=== PATIENT | female | born 1985 | race African-American/Black ===

== ENCOUNTER 2017-07-02 16:05 | Inpatient (IN) | payer OTHER ==
[2017-07-02] MEDS: MORPHINE 4 MG/ML 1ML VIAL (J2270) IV ×3 (16:45→23:26)
[2017-07-02 16:47] LABS: BASO % 0.1 % (0.0-1.0); EOS # 0.1 10^3/uL (0.0-0.50); EOS % 0.4 % (0.0-3.0); HEMATOCRIT 42.9 % (36.0-47.0); HEMOGLOBIN 14.3 g/dl (12.0-16.0); IMMATURE GRANULOCYTE % 0.3 % (0-3.0); LYMPH # 1.5 10^3/uL (1.5-4.5); LYMPH % 12.1 % (24.0-44.0); MEAN CORPUSCULAR HEMOGLOBIN 30.7 pg (27.0-33.0); MEAN CORPUSCULAR HGB CONC 33.3 g/dl (32.0-36.5); MEAN CORPUSCULAR VOLUME 92.1 fl (80.0-96.0); MONO # 0.8 10^3/uL (0.0-0.8); MONO % 6.3 % (0.0-5.0); NEUTROPHILS # 10.1 10^3/uL (1.8-7.7); NEUTROPHILS % 80.8 % (36.0-66.0); PLATELET COUNT, AUTOMATED 234 10^3/uL (150-450); RED BLOOD COUNT 4.66 10^6/uL (4.00-5.40); RED CELL DISTRIBUTION WIDTH 11.5 % (11.5-14.5); WHITE BLOOD COUNT 12.5 10^3/uL (4.0-10.0)
[2017-07-02] MEDS: ONDANSETRON 4MG/2ML VIAL (J2405) IV (16:50)
[2017-07-02] MEDS: NS 1,000 ML IV ×2 (16:54→20:17)
[2017-07-02 17:02] LABS: CONTROL LINE HCG INT CTR LINE PRESENT; HCG, SERUM QUALITATIVE NEGATIVE (NEGATIVE)
[2017-07-02] MEDS: GASTROGRAFIN SOLUTION 30ML PO ×2 (17:03→17:32)
[2017-07-02 17:10] LABS: ALBUMIN 4.6 GM/DL (3.2-5.2); ALBUMIN/GLOBULIN RATIO 1.05 (1.00-1.93); ALKALINE PHOSPHATASE 89 U/L (45-117); ALT/SGPT 31 U/L (12-78); AMYLASE 366 U/L (25-115); ANION GAP 7 MEQ/L (8-16); AST/SGOT 46 U/L (7-37); BILIRUBIN,DIRECT 0.3 MG/DL (0.0-0.2); BILIRUBIN,TOTAL 1.3 MG/DL (0.2-1.0); BLOOD UREA NITROGEN 10 MG/DL (7-18); CALCIUM LEVEL 8.8 MG/DL (8.5-10.1); CARBON DIOXIDE LEVEL 26 MEQ/L (21-32); CHLORIDE LEVEL 104 MEQ/L (98-107); CREATININE FOR GFR 0.62 MG/DL (0.55-1.30); GLOMERULAR FILTRATION RATE > 60.0 (>60); GLUCOSE, FASTING 94 MG/DL (70-100); LIPASE 3899 U/L (73-393); POTASSIUM SERUM 3.7 MEQ/L (3.5-5.1); SODIUM LEVEL 137 MEQ/L (136-145)
[2017-07-02] MEDS ORDERED: ISOVUE-370 76% 100ML VIAL (Q9967) As Ordered (18:05)
[2017-07-02] MEDS: LABETALOL HCL 100 MG/20 ML VIAL IV (18:18)
[2017-07-02] MEDS: HYDROmorphone HCL 1 MG/ML SYRINGE (J1170) IV ×2 (18:49→22:13)
[2017-07-02] MEDS ORDERED: PERCOCET 5MG/325MG TAB PO (19:30)
[2017-07-02] MEDS: PERCOCET 5MG/325MG TAB PO (20:04)
[2017-07-02] MEDS: hydrALAZINE INJ 20 MG/ML VIAL IV (20:06)
[2017-07-02 20:09] LABS: RHEUMATOID FACTOR QUANT < 10.0 IU/ML (<15.0)
[2017-07-02 20:14] LABS: ERYTHROCYTE SEDIMENTATION RATE 7 mm/hr (0-20)
[2017-07-02 20:16] LABS: ETHYL ALCOHOL (ETHANOL) < 0.003 % (0.000-0.010)
[2017-07-02 20:30] LABS: AMPHETAMINES LEVEL URINE NEGATIVE (NEGATIVE); BARBITURATES URINE NEGATIVE (NEGATIVE); BENZODIAZEPINES URINE NEGATIVE (NEGATIVE); CANNABINOIDS URINE NEGATIVE (NEGATIVE); COCAINE METABOLITE URINE NEGATIVE (NEGATIVE); METHADONE URINE NEGATIVE (NEGATIVE); OPIATES URINE POSITIVE (NEGATIVE); PHENCYCLIDINE URINE NEGATIVE (NEGATIVE)
[2017-07-02] MEDS: PANTOPRAZOLE 40MG INJ (PROTONIX) (C9113) IV (21:30)
[2017-07-03] MEDS: PROMETHAZINE INJ 25 MG/ML VIAL (J2550) IV (01:36)
[2017-07-03] MEDS: NS 1,000 ML IV ×4 (02:10→22:10)
[2017-07-03] MEDS: hydrALAZINE INJ 20 MG/ML VIAL IV ×5 (03:51→20:00)
[2017-07-03] MEDS: MORPHINE 4 MG/ML 1ML VIAL (J2270) IV ×5 (03:51→21:34)
[2017-07-03] MEDS: HYDROmorphone HCL 1 MG/ML SYRINGE (J1170) IV (07:36)
[2017-07-03] MEDS: ONDANSETRON 4MG/2ML VIAL (J2405) IV ×2 (07:37)
[2017-07-03] MEDS ORDERED: NS 1,000 ML IV (07:46)
[2017-07-03] MEDS ORDERED: diphenhydrAMINE INJ 50MG/ML VIAL (J1200) IV (08:00)
[2017-07-03] MEDS ORDERED: EPIDURAL/PCA KEYS XX (08:00)
[2017-07-03] MEDS ORDERED: NALBUPHINE HCL 10 MG/ML AMP (J2300) IV (08:00)
[2017-07-03] MEDS ORDERED: MORPHINE 1MG/ML IN 0.9% NACL 100ML IV BAG IV (08:00)
[2017-07-03] MEDS ORDERED: NALOXONE INJ 0.4 MG/1 ML VIAL (J2310) IV (08:00)
[2017-07-03 08:13] LABS: HEMATOCRIT 42.2 % (36.0-47.0); HEMOGLOBIN 14.3 g/dl (12.0-16.0); MEAN CORPUSCULAR HEMOGLOBIN 30.5 pg (27.0-33.0); MEAN CORPUSCULAR HGB CONC 33.9 g/dl (32.0-36.5); PLATELET COUNT, AUTOMATED 210 10^3/uL (150-450); RED BLOOD COUNT 4.69 10^6/uL (4.00-5.40); RED CELL DISTRIBUTION WIDTH 11.5 % (11.5-14.5); WHITE BLOOD COUNT 18.2 10^3/uL (4.0-10.0)
[2017-07-03] MEDS: cloNIDine 0.2 MG TAB PO (08:25)
[2017-07-03] MEDS: ENOXAPARIN 40 MG/0.4 ML SYRINGE (J1650) SC (08:29)
[2017-07-03] MEDS: PANTOPRAZOLE 40MG INJ (PROTONIX) (C9113) IV ×2 (08:30→21:20)
[2017-07-03] MEDS: ATENOLOL 25 MG TAB PO (08:30)
[2017-07-03 08:36] LABS: ALBUMIN 4.2 GM/DL (3.2-5.2); ALBUMIN/GLOBULIN RATIO 1.14 (1.00-1.93); ALKALINE PHOSPHATASE 83 U/L (45-117); ALT/SGPT 27 U/L (12-78); ANION GAP 11 MEQ/L (8-16); AST/SGOT 38 U/L (7-37); BILIRUBIN,TOTAL 0.9 MG/DL (0.2-1.0); BLOOD UREA NITROGEN 5 MG/DL (7-18); CALCIUM LEVEL 8.2 MG/DL (8.5-10.1); CARBON DIOXIDE LEVEL 22 MEQ/L (21-32); CHLORIDE LEVEL 102 MEQ/L (98-107); CHOLESTEROL LEVEL 210 MG/DL (<200); CREATININE FOR GFR 0.45 MG/DL (0.55-1.30); GLOMERULAR FILTRATION RATE > 60.0 (>60); GLUCOSE, FASTING 113 MG/DL (70-100); HDL CHOLESTEROL 100 MG/DL (>40); LDL CHOLESTEROL 98.6 MG/DL (<100); NON-HDL-C 110 MG/DL; POTASSIUM SERUM 3.8 MEQ/L (3.5-5.1); SODIUM LEVEL 135 MEQ/L (136-145); TOTAL PROTEIN 7.9 GM/DL (6.4-8.2); TRIGLYCERIDES LEVEL 57 MG/DL (<150)
[2017-07-03 08:47] LABS: ERYTHROCYTE SEDIMENTATION RATE 9 mm/hr (0-20)
[2017-07-03 09:22] LABS: AMYLASE 267 U/L (25-115)
[2017-07-03 09:22] LABS: LIPASE 1808 U/L (73-393)
[2017-07-03] MEDS ORDERED: PERCOCET 5MG/325MG TAB PO (14:30)
[2017-07-03] MEDS: NORCO, ANEXSIA 5/325MG TABLET (HYDROcodone/ACETAMINOPHEN) PO (18:07)
[2017-07-04] MEDS: hydrALAZINE INJ 20 MG/ML VIAL IV ×7 (04:00→23:52)
[2017-07-04] MEDS: NS 1,000 ML IV ×3 (04:40→18:21)
[2017-07-04] MEDS: NORCO, ANEXSIA 5/325MG TABLET (HYDROcodone/ACETAMINOPHEN) PO ×4 (04:40→20:49)
[2017-07-04 05:35] LABS: MEAN CORPUSCULAR HEMOGLOBIN 30.7 pg (27.0-33.0); MEAN CORPUSCULAR VOLUME 93.2 fl (80.0-96.0); PLATELET COUNT, AUTOMATED 174 10^3/uL (150-450); RED BLOOD COUNT 3.97 10^6/uL (4.00-5.40); RED CELL DISTRIBUTION WIDTH 11.7 % (11.5-14.5); WHITE BLOOD COUNT 9.5 10^3/uL (4.0-10.0)
[2017-07-04 05:38] LABS: HEMOGLOBIN 12.2 g/dl (12.0-16.0)
[2017-07-04 05:58] LABS: ALBUMIN 3.2 GM/DL (3.2-5.2); ALBUMIN/GLOBULIN RATIO 0.94 (1.00-1.93); ALKALINE PHOSPHATASE 61 U/L (45-117); ALT/SGPT 19 U/L (12-78); ANION GAP 6 MEQ/L (8-16); AST/SGOT 18 U/L (7-37); BILIRUBIN,TOTAL 0.9 MG/DL (0.2-1.0); BLOOD UREA NITROGEN 4 MG/DL (7-18); CALCIUM LEVEL 7.8 MG/DL (8.5-10.1); CARBON DIOXIDE LEVEL 23 MEQ/L (21-32); CHLORIDE LEVEL 111 MEQ/L (98-107); CREATININE FOR GFR 0.46 MG/DL (0.55-1.30); GLOMERULAR FILTRATION RATE > 60.0 (>60); GLUCOSE, FASTING 88 MG/DL (70-100); POTASSIUM SERUM 3.5 MEQ/L (3.5-5.1); SODIUM LEVEL 140 MEQ/L (136-145); TOTAL PROTEIN 6.6 GM/DL (6.4-8.2)
[2017-07-04 06:02] LABS: ERYTHROCYTE SEDIMENTATION RATE 25 mm/hr (0-20)
[2017-07-04] MEDS: PANTOPRAZOLE 40MG INJ (PROTONIX) (C9113) IV ×2 (09:21→20:47)
[2017-07-04] MEDS: ATENOLOL 25 MG TAB PO (09:22)
[2017-07-04] MEDS: ENOXAPARIN 40 MG/0.4 ML SYRINGE (J1650) SC (09:23)
[2017-07-04] MEDS: ACETAMINOPHEN 500 MG TAB PO (14:40)
[2017-07-05] MEDS: NS 1,000 ML IV (00:38)
[2017-07-05] MEDS: NORCO, ANEXSIA 5/325MG TABLET (HYDROcodone/ACETAMINOPHEN) PO (04:32)
[2017-07-05] MEDS: hydrALAZINE INJ 20 MG/ML VIAL IV ×2 (04:38→08:00)
[2017-07-05 05:36] LABS: HEMATOCRIT 34.9 % (36.0-47.0); HEMOGLOBIN 11.6 g/dl (12.0-16.0); MEAN CORPUSCULAR HEMOGLOBIN 30.2 pg (27.0-33.0); MEAN CORPUSCULAR HGB CONC 33.2 g/dl (32.0-36.5); MEAN CORPUSCULAR VOLUME 90.9 fl (80.0-96.0); PLATELET COUNT, AUTOMATED 180 10^3/uL (150-450); RED BLOOD COUNT 3.84 10^6/uL (4.00-5.40); RED CELL DISTRIBUTION WIDTH 11.6 % (11.5-14.5); WHITE BLOOD COUNT 7.5 10^3/uL (4.0-10.0)
[2017-07-05 05:57] LABS: ALBUMIN 3.2 GM/DL (3.2-5.2); ALBUMIN/GLOBULIN RATIO 0.91 (1.00-1.93); ALKALINE PHOSPHATASE 58 U/L (45-117); ALT/SGPT 16 U/L (12-78); ANION GAP 5 MEQ/L (8-16); AST/SGOT 16 U/L (7-37); BILIRUBIN,TOTAL 0.6 MG/DL (0.2-1.0); BLOOD UREA NITROGEN 4 MG/DL (7-18); CALCIUM LEVEL 8.2 MG/DL (8.5-10.1); CARBON DIOXIDE LEVEL 26 MEQ/L (21-32); CHLORIDE LEVEL 109 MEQ/L (98-107); GLOMERULAR FILTRATION RATE > 60.0 (>60); GLUCOSE, FASTING 92 MG/DL (70-100); POTASSIUM SERUM 3.4 MEQ/L (3.5-5.1); SODIUM LEVEL 140 MEQ/L (136-145); TOTAL PROTEIN 6.7 GM/DL (6.4-8.2)
[2017-07-05 06:14] LABS: ERYTHROCYTE SEDIMENTATION RATE 30 mm/hr (0-20)
[2017-07-05 06:46] LABS: LIPASE 544 U/L (73-393)
[2017-07-05] MEDS: ENOXAPARIN 40 MG/0.4 ML SYRINGE (J1650) SC (08:20)
[2017-07-05] MEDS: PANTOPRAZOLE 40MG INJ (PROTONIX) (C9113) IV (08:20)
[2017-07-05] MEDS: ATENOLOL 25 MG TAB PO (08:25)
[2017-07-06 14:14] LABS: ANTINUCLEAR ANTIBODIES DIRECT Negative (Negative)
[2017-07-06 14:14] LABS: ANTI-SMOOTH MUSCLE ANTIBODY 9 Units (0-19)
== END 2017-07-05 11:15 | disposition home or self-care (01) | DRG 440 ==
LOC: M PCU 07-03 14:00 → M ED 16:05 → M ED INP 19:16
DX: K85.90 Acute pancreatitis without necrosis or infection, unspecified (principal); K86.1 Other chronic pancreatitis; I10 Essential (primary) hypertension; K21.9 Gastro-esophageal reflux disease without esophagitis; Z87.891 Personal history of nicotine dependence

== ENCOUNTER 2017-11-08 18:37 | Emergency (ER) | payer OTHER | END 2017-11-08 22:06 | disposition home or self-care (01) | LOC: M ED 18:37 | DX: F41.9 Anxiety disorder, unspecified (principal); I10 Essential (primary) hypertension; Z72.0 Tobacco use; Z88.0 Allergy status to penicillin; Z88.1 Allergy status to other antibiotic agents | CPT/HCPCS: 99284 ==

== ENCOUNTER → 2017-12-25 | Outpatient (CLI) | payer OTHER | LOC: M OUTALCOH 07:43 | DX: F10.20 Alcohol dependence, uncomplicated (principal) ==

== ENCOUNTER 2018-01-04 15:11 | Outpatient (RCR) | payer OTHER | END 2018-01-07 | LOC: M OUTALCOH 15:11 | DX: F10.20 Alcohol dependence, uncomplicated (principal) ==

== ENCOUNTER 2018-01-18 15:31 | Outpatient (RCR) | payer OTHER | END 2018-02-07 | LOC: M OUTALCOH 15:31 | DX: F10.20 Alcohol dependence, uncomplicated (principal) ==

== ENCOUNTER → 2018-01-24 | Outpatient (REF) ==
[2018-01-25 08:39] LABS: RUBEOLA IgG ANTIBODY >300.0 AU/mL (Immune >29.9)
== END ==
LOC: M LAB 12:19
DX: Z02.89 Encounter for other administrative examinations (principal)

== ENCOUNTER → 2018-02-05 | Outpatient (CLI) | payer OTHER ==
[2018-02-05 17:06] LABS: BASO % 0.4 % (0.0-1.0); EOS % 0.2 % (0.0-3.0); HEMATOCRIT 40.3 % (36.0-47.0); HEMOGLOBIN 13.5 g/dl (12.0-15.5); IMMATURE GRANULOCYTE % 0.1 % (0-3.0); LYMPH # 1.8 10^3/uL (1.5-4.5); LYMPH % 21.4 % (24.0-44.0); MEAN CORPUSCULAR HEMOGLOBIN 30.4 pg (27.0-33.0); MEAN CORPUSCULAR HGB CONC 33.5 g/dl (32.0-36.5); MEAN CORPUSCULAR VOLUME 90.8 fl (80.0-96.0); MONO # 0.6 10^3/uL (0.0-0.8); MONO % 6.9 % (0.0-5.0); NEUTROPHILS # 6.1 10^3/uL (1.8-7.7); PLATELET COUNT, AUTOMATED 322 10^3/uL (150-450); RED BLOOD COUNT 4.44 10^6/uL (4.00-5.40); RED CELL DISTRIBUTION WIDTH 12.4 % (11.5-14.5); WHITE BLOOD COUNT 8.5 10^3/uL (4.0-10.0)
[2018-02-05 17:10] LABS: APPEARANCE, URINE HAZY (CLEAR); BACTERIA, URINE AUTO NEGATIVE (NEGATIVE); BILIRUBIN, URINE AUTO NEGATIVE (NEGATIVE); BLOOD, URINE BLOOD 2+ (NEGATIVE); COLOR, URINE YELLOW (YELLOW); GLUCOSE, URINE (UA) AUTO NEGATIVE (NEGATIVE); KETONE, URINE AUTO 2+ mg/dL (NEGATIVE); LEUKOCYTE ESTERASE, URINE AUTO NEGATIVE (NEGATIVE); NITRITE, URINE AUTO NEGATIVE (NEGATIVE); PROTEIN, URINE AUTO NEGATIVE (NEGATIVE); RBC, URINE AUTO 9 /HPF (0-3); SPECIFIC GRAVITY URINE AUTO 1.023 (1.002-1.035); SQUAMOUS EPITHELIAL CELL UR AU 3 /HPF (0-6); WBC, URINE AUTO 1 /HPF (0-3)
[2018-02-05 17:20] LABS: ALBUMIN 4.1 GM/DL (3.2-5.2); ALBUMIN/GLOBULIN RATIO 1.17 (1.00-1.93); ALKALINE PHOSPHATASE 75 U/L (45-117); ALT/SGPT 20 U/L (12-78); ANION GAP 7 MEQ/L (8-16); AST/SGOT 24 U/L (7-37); BILIRUBIN,TOTAL 1.3 MG/DL (0.2-1.0); BLOOD UREA NITROGEN 11 MG/DL (7-18); CALCIUM LEVEL 8.7 MG/DL (8.5-10.1); CARBON DIOXIDE LEVEL 28 MEQ/L (21-32); CHLORIDE LEVEL 104 MEQ/L (98-107); CHOLESTEROL LEVEL 178 MG/DL (<200); CHOLESTEROL RISK RATIO 2.617 (<5); CREATININE FOR GFR 0.67 MG/DL (0.55-1.30); FREE T4 1.09 NG/DL (0.76-1.46); GLOMERULAR FILTRATION RATE > 60.0 (>60); GLUCOSE, FASTING 64 MG/DL (70-100); HDL CHOLESTEROL 68 MG/DL (>40); LDL CHOLESTEROL 91 MG/DL (<100); NON-HDL-C 110 MG/DL; SODIUM LEVEL 139 MEQ/L (136-145); THYROID STIMULATING HORMONE 0.794 uIU/ML (0.358-3.740); TOTAL PROTEIN 7.6 GM/DL (6.4-8.2); TRIGLYCERIDES LEVEL 94 MG/DL (<150)
== END ==
LOC: M LRY 12:51
DX: I10 Essential (primary) hypertension (principal)

== ENCOUNTER 2018-02-22 14:50 | Outpatient (RCR) | payer OTHER | END 2018-03-09 | LOC: M OUTALCOH 14:50 | DX: F10.20 Alcohol dependence, uncomplicated (principal) ==

== ENCOUNTER 2018-03-08 23:22 | Inpatient (IN) | payer OTHER ==
[2018-03-09 00:44] LABS: CONTROL LINE HCG INT CTR LINE PRESENT; HCG, SERUM QUALITATIVE NEGATIVE (NEGATIVE)
[2018-03-09 00:46] LABS: HEMATOCRIT 39.7 % (36.0-47.0); HEMOGLOBIN 13.4 g/dl (12.0-15.5); MEAN CORPUSCULAR HEMOGLOBIN 30.2 pg (27.0-33.0); MEAN CORPUSCULAR HGB CONC 33.8 g/dl (32.0-36.5); MEAN CORPUSCULAR VOLUME 89.4 fl (80.0-96.0); PLATELET COUNT, AUTOMATED 242 10^3/uL (150-450); RED BLOOD COUNT 4.44 10^6/uL (4.00-5.40); RED CELL DISTRIBUTION WIDTH 13.2 % (11.5-14.5); WHITE BLOOD COUNT 10.3 10^3/uL (4.0-10.0)
[2018-03-09 00:57] LABS: AMPHETAMINES LEVEL URINE NEGATIVE (NEGATIVE); BARBITURATES URINE NEGATIVE (NEGATIVE); BENZODIAZEPINES URINE NEGATIVE (NEGATIVE); CANNABINOIDS URINE NEGATIVE (NEGATIVE); COCAINE METABOLITE URINE NEGATIVE (NEGATIVE); METHADONE URINE NEGATIVE (NEGATIVE); OPIATES URINE NEGATIVE (NEGATIVE); PHENCYCLIDINE URINE NEGATIVE (NEGATIVE)
[2018-03-09] MEDS: PHENobarbital 30 MG TAB PO (01:10)
[2018-03-09 01:20] LABS: ACETAMINOPHEN LEVEL < 2.0 UG/ML (10.0-30.0); ALBUMIN/GLOBULIN RATIO 1.03 (1.00-1.93); ALKALINE PHOSPHATASE 81 U/L (45-117); ALT/SGPT 26 U/L (12-78); ANION GAP 11 MEQ/L (8-16); AST/SGOT 41 U/L (7-37); BILIRUBIN,DIRECT 0.2 MG/DL (0.0-0.2); BILIRUBIN,TOTAL 0.7 MG/DL (0.2-1.0); BLOOD UREA NITROGEN 11 MG/DL (7-18); CALCIUM LEVEL 8.3 MG/DL (8.5-10.1); CARBON DIOXIDE LEVEL 25 MEQ/L (21-32); CHLORIDE LEVEL 105 MEQ/L (98-107); ETHYL ALCOHOL (ETHANOL) 0.104 % (0.000-0.010); GLOMERULAR FILTRATION RATE > 60.0 (>60); GLUCOSE, FASTING 99 MG/DL (70-100); LIPASE 67 U/L (73-393); POTASSIUM SERUM 3.5 MEQ/L (3.5-5.1); SODIUM LEVEL 141 MEQ/L (136-145); TOTAL PROTEIN 7.9 GM/DL (6.4-8.2)
[2018-03-09] MEDS ORDERED: MOM 30ML SUSPENSION UDC PO (02:00)
[2018-03-09] MEDS ORDERED: MAALOX 30 ML SUSP *UDC PO (02:00)
[2018-03-09] MEDS: ACETAMINOPHEN TAB 650MG DOSE (2X325MG) PO (03:05)
[2018-03-09] MEDS: LORazepam 2 MG TAB PO ×3 (04:05→14:57)
[2018-03-09] MEDS: LISINOPRIL 20 MG TAB PO (09:12)
[2018-03-09] MEDS: MULTIVITAMINS/MINERALS THERAP 1 TAB PO (09:12)
[2018-03-09] MEDS: FOLIC ACID 1 MG TAB PO (09:12)
[2018-03-09] MEDS: THIAMINE 100 MG TAB PO ×2 (09:13→21:00)
[2018-03-09] MEDS: NICOTINE 21MG/24HR 1 EA TRANSDERMAL TD (10:30)
[2018-03-09] MEDS ORDERED: IBUPROFEN 400 MG TAB PO (10:45)
[2018-03-09 11:06] LABS: HEPATITIS C VIRUS ABY INDEX 0.1 INDEX (<0.8)
[2018-03-09 11:06] LABS: HEPATITIS A ANTIBODY IGM NEGATIVE (NEGATIVE); HEPATITIS B CORE ANTIBODY IGM NEGATIVE (NEGATIVE); HEPATITIS B SURFACE ANTIGEN NEGATIVE (NEGATIVE)
[2018-03-09] MEDS: hydroCHLOROthiazide 12.5 MG CAPSULE PO (11:29)
[2018-03-09] MEDS: SERTRALINE HCL 25 MG TABLET PO (14:57)
[2018-03-09] MEDS: traZODone 50 MG TAB PO (22:33)
[2018-03-10 06:45] LABS: HEMATOCRIT 41.1 % (36.0-47.0); HEMOGLOBIN 13.9 g/dl (12.0-15.5); MEAN CORPUSCULAR HEMOGLOBIN 30.2 pg (27.0-33.0); MEAN CORPUSCULAR HGB CONC 33.8 g/dl (32.0-36.5); MEAN CORPUSCULAR VOLUME 89.2 fl (80.0-96.0); PLATELET COUNT, AUTOMATED 209 10^3/uL (150-450); RED BLOOD COUNT 4.61 10^6/uL (4.00-5.40)
[2018-03-10 07:07] LABS: ALBUMIN 3.8 GM/DL (3.2-5.2); ALKALINE PHOSPHATASE 83 U/L (45-117); ALT/SGPT 20 U/L (12-78); ANION GAP 10 MEQ/L (8-16); AST/SGOT 22 U/L (7-37); BILIRUBIN,TOTAL 1.3 MG/DL (0.2-1.0); BLOOD UREA NITROGEN 16 MG/DL (7-18); CARBON DIOXIDE LEVEL 26 MEQ/L (21-32); CHLORIDE LEVEL 104 MEQ/L (98-107); CREATININE FOR GFR 0.84 MG/DL (0.55-1.30); GLOMERULAR FILTRATION RATE > 60.0 (>60); GLUCOSE, FASTING 138 MG/DL (70-100); POTASSIUM SERUM 3.5 MEQ/L (3.5-5.1); SODIUM LEVEL 140 MEQ/L (136-145); TOTAL PROTEIN 7.6 GM/DL (6.4-8.2)
[2018-03-10] MEDS: MULTIVITAMINS/MINERALS THERAP 1 TAB PO (09:14)
[2018-03-10] MEDS: THIAMINE 100 MG TAB PO ×2 (09:14→20:10)
[2018-03-10] MEDS: SERTRALINE HCL 25 MG TABLET PO (09:14)
[2018-03-10] MEDS: FOLIC ACID 1 MG TAB PO (09:14)
[2018-03-10] MEDS: hydroCHLOROthiazide 12.5 MG CAPSULE PO (09:15)
[2018-03-10] MEDS: NICOTINE 21MG/24HR 1 EA TRANSDERMAL TD (09:15)
[2018-03-10] MEDS: LISINOPRIL 20 MG TAB PO (09:15)
[2018-03-10] MEDS: LORazepam 1 MG TAB PO (18:35)
[2018-03-10] MEDS: traZODone 50 MG TAB PO (20:10)
[2018-03-11] MEDS: FOLIC ACID 1 MG TAB PO (08:29)
[2018-03-11] MEDS: NICOTINE 21MG/24HR 1 EA TRANSDERMAL TD (08:29)
[2018-03-11] MEDS: hydroCHLOROthiazide 12.5 MG CAPSULE PO (08:30)
[2018-03-11] MEDS: THIAMINE 100 MG TAB PO ×2 (08:30→21:34)
[2018-03-11] MEDS: SERTRALINE HCL 25 MG TABLET PO (08:30)
[2018-03-11] MEDS: LISINOPRIL 20 MG TAB PO (08:30)
[2018-03-11] MEDS: MULTIVITAMINS/MINERALS THERAP 1 TAB PO (08:30)
[2018-03-11] MEDS: LORazepam 1 MG TAB PO (17:21)
[2018-03-11] MEDS: traZODone 50 MG TAB PO (21:34)
[2018-03-12] MEDS: FOLIC ACID 1 MG TAB PO (08:03)
[2018-03-12] MEDS: SERTRALINE HCL 50 MG TAB PO (08:03)
[2018-03-12] MEDS: LISINOPRIL 20 MG TAB PO (08:03)
[2018-03-12] MEDS: hydroCHLOROthiazide 12.5 MG CAPSULE PO (08:03)
[2018-03-12] MEDS: MULTIVITAMINS/MINERALS THERAP 1 TAB PO (08:03)
[2018-03-12] MEDS: NICOTINE 21MG/24HR 1 EA TRANSDERMAL TD (08:04)
== END 2018-03-12 18:15 | disposition home or self-care (01) | DRG 885 ==
LOC: M ED 23:22 → M ED INP 03-09 02:00 → M PSY 03-09 02:51
PROVIDERS: Psychiatry & Neurology Psychiatry
DX: F33.9 Major depressive disorder, recurrent, unspecified (principal); K86.1 Other chronic pancreatitis; F10.239 Alcohol dependence with withdrawal, unspecified; F17.210 Nicotine dependence, cigarettes, uncomplicated; I10 Essential (primary) hypertension; Z62.810 Personal history of physical and sexual abuse in childhood; Z88.0 Allergy status to penicillin; Z91.410 Personal history of adult physical and sexual abuse; Z88.1 Allergy status to other antibiotic agents; Z91.82 Personal history of military deployment; Z79.899 Other long term (current) drug therapy

== ENCOUNTER 2018-04-04 15:00 | Outpatient (RCR) | payer OTHER ==
[~2018-04-04 15:00] MED LIST: ATEN25TA PO; FOLI1TAB11 PO; HYDR12CA PO; IBUP-1022 PO; LISI-538 PO; LISI10TA4 PO; LISI20TA PO; NICO21PAT TD; NORCOTAB PO; SERT25TA88 PO; SERT50TA PO; TRAZO50TA PO; VITMTA PO
== END 2018-04-09 ==
LOC: M OUTALCOH 15:00
PROVIDERS: ATTEND Psychiatry & Neurology Psychiatry
DX: F10.20 Alcohol dependence, uncomplicated (principal)

== ENCOUNTER 2018-04-08 11:29 | Inpatient (IN) | payer OTHER ==
[~2018-04-08] VITALS: Ht 170.2 cm; Wt 54.4 kg
[~2018-04-08 11:29] MED LIST changes: -FOLI1TAB11 PO; +FOLI1TAB5 PO
[2018-04-08 12:27] LABS: HEMATOCRIT 43.6 % (36.0-47.0); HEMOGLOBIN 14.6 g/dl (12.0-15.5); MEAN CORPUSCULAR HEMOGLOBIN 30.5 pg (27.0-33.0); MEAN CORPUSCULAR HGB CONC 33.5 g/dl (32.0-36.5); PLATELET COUNT, AUTOMATED 218 10^3/uL (150-450); RED BLOOD COUNT 4.79 10^6/uL (4.00-5.40); WHITE BLOOD COUNT 6.2 10^3/uL (4.0-10.0)
[2018-04-08] MEDS ORDERED: OXAZEPAM 10 MG CAP PO ONE ×2 (12:30→14:30)
[2018-04-08 12:55] LABS: ACETAMINOPHEN LEVEL < 2.0 UG/ML (10.0-30.0); ALBUMIN 4.4 GM/DL (3.2-5.2); ALT/SGPT 40 U/L (12-78); AMPHETAMINES LEVEL URINE NEGATIVE (NEGATIVE); BARBITURATES URINE POSITIVE (NEGATIVE); BENZODIAZEPINES URINE NEGATIVE (NEGATIVE); BILIRUBIN,DIRECT 0.3 MG/DL (0.0-0.2); BILIRUBIN,TOTAL 1.4 MG/DL (0.2-1.0); BLOOD UREA NITROGEN 10 MG/DL (7-18); CALCIUM LEVEL 9.1 MG/DL (8.5-10.1); CANNABINOIDS URINE NEGATIVE (NEGATIVE); CARBON DIOXIDE LEVEL 29 MEQ/L (21-32); CHLORIDE LEVEL 99 MEQ/L (98-107); COCAINE METABOLITE URINE NEGATIVE (NEGATIVE); ETHYL ALCOHOL (ETHANOL) < 0.003 % (0.000-0.010); GLOMERULAR FILTRATION RATE > 60.0 (>60); GLUCOSE, FASTING 111 MG/DL (70-100); METHADONE URINE NEGATIVE (NEGATIVE); OPIATES URINE NEGATIVE (NEGATIVE); PHENCYCLIDINE URINE NEGATIVE (NEGATIVE); POTASSIUM SERUM 3.8 MEQ/L (3.5-5.1); SALICYLATE LEVEL 2.4 MG/DL (5.0-30.0); SODIUM LEVEL 137 MEQ/L (136-145); TOTAL PROTEIN 8.2 GM/DL (6.4-8.2)
[2018-04-08] MEDS ORDERED: MOM 30ML SUSPENSION UDC PO PRN (14:00)
[2018-04-08] MEDS ORDERED: ACETAMINOPHEN TAB 650MG DOSE (2X325MG) PO PRN (14:00)
[2018-04-08] MEDS ORDERED: traZODone 50 MG TAB PO PRN (14:00)
[2018-04-08 16:15] VITALS: BP 136/88
[2018-04-08] MEDS ORDERED: LORazepam 2 MG TAB PO STA (16:43)
[2018-04-08] MEDS ORDERED: LORazepam 2 MG TAB PO PRN (16:45)
[2018-04-08 16:46] VITALS: BP 131/88
[2018-04-08] MEDS: FOLIC ACID 1 MG TAB PO SCH (17:00)
[2018-04-08] MEDS: NICOTINE 21MG/24HR 1 EA TRANSDERMAL TD SCH (17:00)
[2018-04-08 18:00] VITALS: BP 118/84
[2018-04-08] MEDS: THIAMINE 100 MG TAB PO SCH (21:06)
[2018-04-08 21:30] VITALS: BP 118/84
[2018-04-09] VITALS: BP 128/80
[2018-04-09 06:20] VITALS: BP 118/77
[2018-04-09 06:21] VITALS: BP 118/77
[2018-04-09 07:10] LABS: ALBUMIN 3.6 GM/DL (3.2-5.2); BILIRUBIN,DIRECT 0.2 MG/DL (0.0-0.2); BILIRUBIN,TOTAL 0.9 MG/DL (0.2-1.0)
[2018-04-09] MEDS: NICOTINE 21MG/24HR 1 EA TRANSDERMAL TD SCH (08:13)
[2018-04-09] MEDS: THIAMINE 100 MG TAB PO SCH ×2 (08:13→21:05)
[2018-04-09] MEDS: LISINOPRIL 20 MG TAB PO SCH (08:13)
[2018-04-09] MEDS: MULTIVITAMINS/MINERALS THERAP 1 TAB PO SCH (08:13)
[2018-04-09] MEDS: FOLIC ACID 1 MG TAB PO SCH (08:13)
[2018-04-09] MEDS: hydroCHLOROthiazide 12.5 MG CAPSULE PO SCH (08:13)
[2018-04-09] MEDS ORDERED: SERTRALINE HCL 50 MG TAB PO SCH (09:00)
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
[2018-04-09 11:43] VITALS: BP 125/99
[2018-04-09] MEDS ORDERED: SERTRALINE HCL 50 MG TAB PO ONE (11:45)
[2018-04-09] MEDS ORDERED: hydrOXYzine 25 MG TAB PO PRN (11:45)
[2018-04-09] MEDS ORDERED: traZODone 100 MG TAB PO PRN (11:45)
[2018-04-09] MEDS: NALTREXONE 50 MG TAB PO SCH (12:17)
[2018-04-09 18:00] VITALS: BP 138/95
[2018-04-09 21:00] VITALS: BP 128/80
[2018-04-09] MEDS: MAALOX 30 ML SUSP *UDC PO PRN (21:05)
[2018-04-10] MEDS: MAALOX 30 ML SUSP *UDC PO PRN (03:42)
[2018-04-10 06:45] VITALS: BP 128/79
[2018-04-10] MEDS: hydroCHLOROthiazide 12.5 MG CAPSULE PO SCH (08:15)
[2018-04-10] MEDS: NICOTINE 21MG/24HR 1 EA TRANSDERMAL TD SCH (08:15)
[2018-04-10] MEDS: FOLIC ACID 1 MG TAB PO SCH (08:15)
[2018-04-10] MEDS: MULTIVITAMINS/MINERALS THERAP 1 TAB PO SCH (08:15)
[2018-04-10] MEDS: NALTREXONE 50 MG TAB PO SCH (08:15)
[2018-04-10] MEDS: SERTRALINE 100 MG TAB PO SCH (08:15)
[2018-04-10] MEDS: THIAMINE 100 MG TAB PO SCH ×2 (08:15→20:44)
[2018-04-10] MEDS: LISINOPRIL 20 MG TAB PO SCH (08:15)
--- NOTE | 2018-04-10 11:28 | HPE ---
DATE OF ADMISSION: 04/08/2018 Please refer to the psychiatric history and evaluation for further details on this admission. This examination is intended for medical issues which may need treatment, followup or consultation on this 33-year-old female. ALLERGIES: - PENICILLIN - VANCOMYCIN PAST MEDICAL HISTORY: 1. Anxiety. 2. Depression. 3. ETOH abuse. 4. Hypertension. PAST SURGICAL HISTORY: 1. Cholecystectomy. 2. Bowel obstruction. 3. Breast augmentation. 4. section times three. 5. Dilation and curettage (D and C). 6. Surgical removal of intrauterine device (IUD). 7. Bilateral tubal ligation. 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 She has three children. She smokes 4-5 cigarettes per day. She is a binge drinker. She drinks daily off and on for years. She started binge drinking on [place] and has drank for three days. Recreational drugs - None. LABORATORY STUDIES: CBC was normal. Electrolytes normal. BUN 10, creatinine 0.80. Total bilirubin 1.4. Direct bilirubin 0.3. AST elevated at 67. Toxicology was positive for barbiturates. Will recheck liver profile in the a.m. HOME MEDICATIONS: - folic acid 1 mg by mouth daily - hydrochlorothiazide 12.5 mg by mouth daily - lisinopril 20 mg by mouth daily - multivitamin one by mouth daily - Sertraline 50 mg by mouth daily - trazodone 50 mg by mouth at bedtime as needed insomnia FAMILY HISTORY: Mother alive, history of alcohol use. Father , cirrhosis and alcohol use. REVIEW OF SYSTEMS: 11 point review of systems was done and unremarkable. EKG: On file from 03/09/2018 shows sinus tachycardia of 102. PHYSICAL EXAMINATION: 33-year-old cooperative female in no acute distress. Height 67 inches. Weight 55.4 kg. Body mass index (BMI) 19.1. Blood pressure 118/84. Temperature 97.9. Respirations 16. Oxygen saturation 99% on room air. The patient is alert and oriented times three. Pupils equal and react to light. Extraocular movements intact. Cornea and sclera clear. Conjunctiva normal. No facial asymmetry. Pharynx, tongue and gums pink and moist. Tongue is midline. Neck is supple, without lymphadenopathy. No thyromegaly. No goiter. Carotids 2+, without bruit. Chest clear to auscultation, without wheeze or retraction. Heart is regular. Abdomen benign. Bowel sounds positive. Genitourinary ()/Rectal: Not done. Extremities show equal strength, full range of motion. No cyanosis, clubbing or edema. Peripheral pulses equal and palpable bilaterally. Skin is warm and dry. IMPRESSION AND PLAN: 1. Psychiatric. Plan per psychiatry. 2. No acute medical issues. 3. History of hypertension. Clinically stable. Continue hydrochlorothiazide and lisinopril. 4. Slightly elevated AST. Will get a liver profile in the a.m.
[2018-04-10 15:07] VITALS: BP 137/96
[2018-04-10 18:00] VITALS: BP 137/96
--- NOTE | 2018-04-10 19:07 | MHIPN ---
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 She was admitted for suicidal ideas and alcohol abuse. The patient reports the medication is helping her and she does not have any suicidal thoughts. MENTAL STATUS EXAMINATION: Casually dressed, cooperative, made good eye contact. Psychomotor activity is normal. Speech: Rate, rhythm and volume are good. There is no tangentiality or any circumstantiality. Speech is coherent. Thought content: Denied any delusions. Denied any suicidal or homicidal ideas. She is alert and oriented to time, place and person. Denied any preoccupation. Insight and judgment are good. VITAL SIGNS: Temperature 97.4, pulse is 86, respiratory rate 14, blood pressure is 128/ (cut off). REVIEW OF SYSTEMS: Denied chest pain, palpitations. Denied abdominal pain, dysuria. Denied cough, shortness of breath. Denied numbness, tingling. Gait is normal. DIAGNOSES: 1. Major depressive disorder. 2. Alcohol use disorder. PLAN: Continue current medication. Continue individual and group therapy.
[2018-04-11 07:00] VITALS: BP 124/74
[2018-04-11] MEDS: NALTREXONE 50 MG TAB PO SCH (08:28)
[2018-04-11 08:29] VITALS: BP 124/74
[2018-04-11] MEDS: MULTIVITAMINS/MINERALS THERAP 1 TAB PO SCH (08:29)
[2018-04-11] MEDS: FOLIC ACID 1 MG TAB PO SCH (08:29)
[2018-04-11] MEDS: THIAMINE 100 MG TAB PO SCH (08:29)
[2018-04-11] MEDS: LISINOPRIL 20 MG TAB PO SCH (08:29)
[2018-04-11] MEDS: SERTRALINE 100 MG TAB PO SCH (08:29)
[2018-04-11] MEDS: hydroCHLOROthiazide 12.5 MG CAPSULE PO SCH (08:30)
[2018-04-11] MEDS: NICOTINE 21MG/24HR 1 EA TRANSDERMAL TD SCH (08:30)
--- NOTE | 2018-04-11 10:44 | MHDSPDOC ---
[facility] Discharge Summary Discharge Summary DATE OF ADMISSION: Apr 08, 2018 at 1:49 pm DATE OF DISCHARGE: Apr 11, 2018 DISCHARGE DIAGNOSES: Major Depressive d/o recurrent, moderate, w/o psychosis Alcohol use D/O. REASON FOR ADMISSION: Patient is a 33 -year-old , female, with a history of depression and alcohol abuse, just d/c [facility] 03/12/18, who was admitted for depression, SI, and alcohol abuse. In the ED, pt endorsed increasing depressed mood due to jealously over her 's close relationship with his sister. Pt also endorsed binging on Vodka / 750ml bottle a few times a week to self medicate. Previous closed CPS case due to pt's alcohol abuse. Pt's with her in the ED and taken aside to talk with SW and stated pt has voiced SI with plan to OD on prescription pills and belief pt may have took 2-3 of her prozac pills recently as a possible OD. also stated that he's concerned of pt's alcohol abuse as he recently returned home from work to find the pt heavily intoxicated while caring for their children (11, 9, 1). He called CPS and a case has been filed and started. Pt seen today and states she's been struggling with depression recently due to stress between she and that she has been self medicating with alcohol in a binge pattern. States she drinks when she's upset with her and was intoxicated with children which she regrets due to being angry with . Denies taking increased number of Prozac and states she doesn't take that but she takes zoloft as directed. Pt feels her medication isn't as beneficial as it was and is agreeable to increasing zoloft. Endorses anxiety and agreeable to atarax prn anxiety. Complaint of insomnia and asking Trazodone be increased. Denies alcohol withdrawal. Encouraged to attend groups and learn coping skills. Discussed some more therapeutic activities she could do in the future for stress that can even involve her kids which she admits she can try in the future. Pt admits though that it's hard not to drink as keeps alcohol in home. Advised treatment team will speak with him to get ride of all alcohol in the home. Asking for naltrexone for alcohol craving. Denies SI/HI, hallucinations, delusions. Feels safe here. CONSULTANTS INVOLVED: none TREATMENT AND PROGRESS ON THE UNIT : Pt was admitted to [facility], seen for psychiatric assessment and her outpatient zoloft was increased to 100mg daily for mood and anxiety. She was started on naltrexone 50mg daily for alcohol craving. She was provided vistaril 25mg q6hr prn anxiety and trazodone 50mg qhs prn insomnia. She was started on a CIWA protocol and monitored for alcohol withdrawal symptoms that she denied experiencing during her stay and only used ativan once for anxiety on admission. Pt found her medications beneficial and tolerated them well. She attended groups daily during her stay. Her symptoms improved with treatment. On day of discharge she denied depression, anxiety, insomnia, SI/HI, hallucinations, delusions. She was discharged home after family meeting with her with follow-up at [facility] and substance abuse treatment. She felt safe for discharge. DISCHARGE ASSESSMENT: Pt seen and states that her mood is much better and that she's finding her medication very beneficial. She denies alcohol withdrawal symptoms and is finding naltrexone beneficial for alcohol craving. States her came to see her during her stay and agreed to remove all the alcohol from the home to aid her with her sobriety. States she's being social on the milieu which is beneficial. States she slept well last night. Feels she is tolerating her medications and they're beneficial. She is attending groups and finding them helpful. She denies depression, anxiety, insomnia, SI/HI, hallucinations, delusions, alcohol withdrawal symptoms. Pt feels safe to be discharged home MENTAL STATUS EXAMINATION ON DISCHARGE: General Appearance: well groomed, appears stated age, pajamas Build: average Demeanor: average Activity: anxious Behavior: cooperative Speech: clear, spontaneous, normal volume, reg/rate,rhythm,volume Mood: euthymic, bright Mood good Affect: euthymic, bright Thought Process: logical/linear, intact Thought Content (Delusions): denies SI, HI, AVH Thought Content (Other): none reported, appropriate Thought Content (Aggressive): none reported Perception (Hallucinations): none reported Perception (Other): none reported Cognition (Impairment of): none reported Cognition(Intelligence Est.): average Oriented: Awake, Alert, Oriented times three Insight: good Judgment: good Psychosis: Denies MEDICATIONS ON DISCHARGE: zoloft 100mg daily trazodone 100mg qhs prn insomnia atarax q6hr prn anxiety naltrexone 50mg daily PLAN/FOLLOWUP ARRANGEMENTS: D/c home with follow-up [facility] for psychiatric and substance abuse treatment. The amount of time spent in the coordination of care for this patient was desmond roximately 30 minutes. Vital Signs/I&Os Vital Signs Date Time Temp Pulse Resp B/P (MAP) Pulse Ox O2 Delivery O2 Flow Rate FiO2 04/11/18 08:29 124/74 04/11/18 07:00 98.3 84 16 04/09/18 06:21 Room Air 04/08/18 14:49 99 Medications Scheduled Folic Acid (Folic Acid) 1 Mg Tab, 1 MG PO DAILY for alcohol withdrawals, #7 Hydrochlorothiazide (Hydrochlorothiazide) 12.5 Mg Cap, 12.5 MG PO DAILY for hypertension, #7 Lisinopril (Lisinopril) 20 Mg Tab, 20 MG PO DAILY for lisinopril, #7 Multivitamins *[facility] STOCKED* (Thera M Plus *[facility] STOCKED*) 1 Tab Tab, 1 TAB PO DAILY for alcohol withdrawals, #7 Sertraline Hcl (Sertraline HCl) 50 Mg Tab, 50 MG PO DAILY for depression, #7 Scheduled PRN Trazodone HCl (Trazodone HCl) 50 Mg Tab, 50 MG PO QHSP PRN for INSOMNIA, #7 Allergies Coded Allergies: Penicillins (Verified Allergy, Unknown, shock, 07/02/17) Vancomycin (Verified Allergy, Unknown, rash, 07/02/17) MARLENY WILLIAM DO Apr 11, 2018 10:44 am
[2018-04-11] MEDS ORDERED: TRAZ10TA PO (10:47)
[2018-04-11] MEDS ORDERED: SERT-138 PO (10:47)
[2018-04-11] MEDS ORDERED: NALT50TA4 PO (10:47)
[2018-04-11] MEDS ORDERED: HYDR-3363 PO (10:47)
== END 2018-04-11 15:30 | disposition home or self-care (01) | DRG 885 ==
LOC: M ED 11:29 → M ED INP 13:49 → M PSY 15:07
PROVIDERS: ADMIT Psychiatry & Neurology Psychiatry; ATTEND Psychiatry & Neurology Psychiatry
DX: F33.1 Major depressive disorder, recurrent, moderate (principal); F10.10 Alcohol abuse, uncomplicated; Z79.899 Other long term (current) drug therapy; Z88.0 Allergy status to penicillin; Z88.1 Allergy status to other antibiotic agents; I10 Essential (primary) hypertension

== ENCOUNTER → 2018-04-19 | Outpatient (REF) | payer OTHER ==
[~2018-04-19] MED LIST changes: +FOLI1TAB11 PO; -FOLI1TAB5 PO; +HYDR-3363 PO; +NALT50TA4 PO; +SERT-138 PO; +TRAZ10TA PO
== END ==
LOC: M SFHCLERA 17:54
PROVIDERS: ATTEND Nurse Practitioner Family
DX: L02.91 Cutaneous abscess, unspecified (principal)

== ENCOUNTER 2018-05-09 08:45 | Outpatient (RCR) | payer OTHER | END 2018-05-10 | LOC: M OUTALCOH 08:45 | PROVIDERS: ATTEND Psychiatry & Neurology Psychiatry | DX: F10.20 Alcohol dependence, uncomplicated (principal) ==

== ENCOUNTER 2018-05-14 08:45 | Outpatient (RCR) | payer OTHER | END 2018-06-07 | LOC: M OUTALCOH 08:45 | PROVIDERS: ATTEND Psychiatry & Neurology Psychiatry | DX: F10.20 Alcohol dependence, uncomplicated (principal) ==

== ENCOUNTER 2018-08-06 16:33 | Emergency (ER) | payer OTHER ==
[~2018-08-06] VITALS: Ht 170.2 cm; Wt 59.2 kg
[~2018-08-06 16:33] MED LIST changes: +HYDR-3715 PO; -NORCOTAB PO; +SERT-141 PO; -SERT50TA PO
[2018-08-06] MEDS ORDERED: NS 1,000 ML IV ONE (17:30)
[2018-08-06] MEDS ORDERED: MORPHINE 4 MG/ML 1ML VIAL/SYRINGE (J2270) IV ONE (17:30)
[2018-08-06] MEDS ORDERED: ONDANSETRON 4MG/2ML VIAL (J2405) IV ONE (17:30)
[2018-08-06 17:58] LABS: BASO % 0.2 % (0.0-1.0); EOS % 0.1 % (0.0-3.0); HEMOGLOBIN 13.7 g/dl (12.0-15.5); LYMPH # 1.4 10^3/uL (1.5-4.5); LYMPH % 15.9 % (24.0-44.0); MEAN CORPUSCULAR HEMOGLOBIN 30.6 pg (27.0-33.0); MEAN CORPUSCULAR HGB CONC 33.4 g/dl (32.0-36.5); MEAN CORPUSCULAR VOLUME 91.5 fl (80.0-96.0); MONO % 10.6 % (0.0-5.0); NEUTROPHILS # 6.6 10^3/uL (1.8-7.7); PLATELET COUNT, AUTOMATED 184 10^3/uL (150-450); RED BLOOD COUNT 4.48 10^6/uL (4.00-5.40)
[2018-08-06 18:20] LABS: ALBUMIN 3.9 GM/DL (3.2-5.2); ALT/SGPT 20 U/L (12-78); BILIRUBIN,DIRECT 0.2 MG/DL (0.0-0.2); BILIRUBIN,TOTAL 0.8 MG/DL (0.2-1.0); BLOOD UREA NITROGEN 7 MG/DL (7-18); CALCIUM LEVEL 8.3 MG/DL (8.5-10.1); CARBON DIOXIDE LEVEL 27 MEQ/L (21-32); CHLORIDE LEVEL 103 MEQ/L (98-107); CREATININE FOR GFR 0.71 MG/DL (0.55-1.30); GLOMERULAR FILTRATION RATE > 60.0 (>60); GLUCOSE, FASTING 88 MG/DL (70-100); LIPASE 885 U/L (73-393); POTASSIUM SERUM 3.4 MEQ/L (3.5-5.1); SODIUM LEVEL 137 MEQ/L (136-145); TOTAL PROTEIN 7.8 GM/DL (6.4-8.2)
[2018-08-06] MEDS ORDERED: ONDA4TAB6 PO (19:00)
[2018-08-06] MEDS ORDERED: NORC1TAB7 PO (19:00)
[2018-08-06 19:52] VITALS: BP 142/98
== END 2018-08-06 19:54 | disposition home or self-care (01) ==
LOC: M ED 16:33
DX: K86.1 Other chronic pancreatitis (principal); I10 Essential (primary) hypertension; F17.210 Nicotine dependence, cigarettes, uncomplicated; Z79.899 Other long term (current) drug therapy; Z88.0 Allergy status to penicillin; Z88.1 Allergy status to other antibiotic agents
CPT/HCPCS: 80048; 80076; 83690; 85025; 96361; 96374; 96375; 99284; J2270; J2405

== ENCOUNTER 2018-09-27 09:44 | Emergency (ER) | payer OTHER, SELFPAY ==
[~2018-09-27] VITALS: Ht 170.2 cm; Wt 55.9 kg
[~2018-09-27 09:44] MED LIST changes: -LISI20TA PO; +LISI20TA18 PO; +MACR100C43 PO; +NORC1TAB7 PO; +ONDA4TAB6 PO; +TRAZ-189 PO; +TRAZ1TAB10 PO; -TRAZO50TA PO
--- NOTE | 2018-09-27 10:41 | REP ---
Right shoulder three views: The acromioclavicular joint is mildly widened. This is nonspecific and could be congenital or post-traumatic. This could be chronic or acute. The glenohumeral joint is unremarkable. Mineralization is normal. No calcifications or foreign bodies. There is no fracture or dislocation. Impression: Nonspecific mild acromioclavicular joint widening as described. Otherwise, negative right shoulder. Electronically Signed by Liam Burgess MD 09/27/2018 10:33 A
[2018-09-27] MEDS ORDERED: MOBI4TAB PO (11:17)
[2018-09-27 11:31] VITALS: BP 139/98
[2018-09-28] MEDS ORDERED: MOBI4TAB PO (16:57)
== END 2018-09-27 11:31 | disposition home or self-care (01) ==
LOC: M ED 09:44
DX: S43.51XA Sprain of right acromioclavicular joint, initial encounter (principal); X58.XXXA Exposure to other specified factors, initial encounter; Y92.129 Unspecified place in nursing home as the place of occurrence of the external cause; Y93.9 Activity, unspecified; Y99.9 Unspecified external cause status; I10 Essential (primary) hypertension; K21.9 Gastro-esophageal reflux disease without esophagitis; Z72.0 Tobacco use; Z79.899 Other long term (current) drug therapy; Z88.0 Allergy status to penicillin; Z88.1 Allergy status to other antibiotic agents

== ENCOUNTER 2018-09-28 10:14 | Observation (INO) | payer OTHER ==
[~2018-09-28] VITALS: Ht 170.2 cm; Wt 54.7 kg
[2018-09-28] MEDS: MULTIVITAMINS/MINERALS THERAP 1 TAB PO SCH (09:00)
[2018-09-28] MEDS: FOLIC ACID 1 MG TAB PO SCH (09:00)
[2018-09-28] MEDS: amLODIPine 5 MG TAB PO SCH (09:00)
[~2018-09-28 10:14] MED LIST changes: +LISI20TA PO; -LISI20TA18 PO; +LISINOPRIL 20 MG TAB PO SCH; +MOBI4TAB PO
[2018-09-28 11:03] LABS: BASO % 0.1 % (0.0-1.0); HEMATOCRIT 43.5 % (36.0-47.0); HEMOGLOBIN 14.3 g/dl (12.0-15.5); LYMPH # 0.5 10^3/uL (1.5-4.5); LYMPH % 4.8 % (24.0-44.0); MEAN CORPUSCULAR HEMOGLOBIN 30.1 pg (27.0-33.0); MEAN CORPUSCULAR HGB CONC 32.9 g/dl (32.0-36.5); MEAN CORPUSCULAR VOLUME 91.6 fl (80.0-96.0); MONO # 0.7 10^3/uL (0.0-0.8); NEUTROPHILS # 9.2 10^3/uL (1.8-7.7); NEUTROPHILS % 87.7 % (36.0-66.0); PLATELET COUNT, AUTOMATED 148 10^3/uL (150-450); RED BLOOD COUNT 4.75 10^6/uL (4.00-5.40); WHITE BLOOD COUNT 10.5 10^3/uL (4.0-10.0)
[2018-09-28] MEDS ORDERED: ONDANSETRON 4MG/2ML VIAL (J2405) IV ONE ×2 (11:30→16:15)
[2018-09-28] MEDS ORDERED: KETOROLAC 30 MG/ML VIAL (J1885) IV ONE (11:30)
[2018-09-28] MEDS ORDERED: NS 1,000 ML IV ONE (11:30)
[2018-09-28 11:31] LABS: ALBUMIN 3.6 GM/DL (3.2-5.2); ALT/SGPT 19 U/L (12-78); BILIRUBIN,DIRECT 0.2 MG/DL (0.0-0.2); BILIRUBIN,TOTAL 0.7 MG/DL (0.2-1.0); BLOOD UREA NITROGEN 16 MG/DL (7-18); CARBON DIOXIDE LEVEL 18 MEQ/L (21-32); CHLORIDE LEVEL 100 MEQ/L (98-107); GLOMERULAR FILTRATION RATE > 60.0 (>60); GLUCOSE, FASTING 115 MG/DL (70-100); LIPASE 2060 U/L (73-393); POTASSIUM SERUM 4.3 MEQ/L (3.5-5.1); SODIUM LEVEL 137 MEQ/L (136-145); TOTAL PROTEIN 8.9 GM/DL (6.4-8.2)
[2018-09-28] MEDS ORDERED: ISOVUE-370 76% 100ML VIAL (Q9967) As Ordered ONE (12:15)
[2018-09-28] MEDS ORDERED: MORPHINE 2 MG/ML 1ML SYRINGE (J2270) IV ONE (16:00)
--- NOTE | 2018-09-28 16:28 | REP ---
CT of the abdomen and pelvis with IV contrast, without bowel contrast: Comparison is 08/23/2018. The visualized lung aleman are unremarkable. The hepatic parenchyma is homogeneous. There is a cholecystectomy. The pancreas and spleen are normal size and unremarkable. The adrenals are unremarkable. There is a Bosniak category one simple 10 ml cyst in the right kidney anteriorly, unchanged and the kidneys are otherwise unremarkable. Abdominal aorta is unremarkable. There is no retroperitoneal adenopathy or mass. There is no bowel distension or obstruction. There is no ascites. The mesentery is unremarkable. There is wall thickening of the cecum, ascending colon and transverse colon compatible with colitis in the appropriate clinical setting. Pelvis: The previous right adnexal cyst has involuted. The adnexa and uterus are unremarkable. The bladder is unremarkable. There is no ascites or adenopathy. Impression: Wall thickening of the ascending colon and transverse colon, compatible with colitis in the appropriate clinical setting. No ascites or adenopathy. The pancreas is unremarkable. The right adnexal cyst identified on the previous study has involuted. Electronically Signed by Liam Burgess MD 09/28/2018 04:19 P
[2018-09-28] MEDS ORDERED: MOBI4TAB PO (16:57)
[2018-09-28] MEDS ORDERED: LevoFLOXacin IV 500 MG in APPROPRIATE DILUENT 1 EA IV ONE (17:00)
[2018-09-28] MEDS ORDERED: KETOROLAC 30 MG/ML VIAL (J1885) IV PRN (17:00)
[2018-09-28] MEDS ORDERED: cloNIDine 0.1 MG TAB PO PRN (17:00)
[2018-09-28] MEDS ORDERED: LORazepam 2 MG TAB PO PRN (17:00)
[2018-09-28 17:10] LABS: ETHYL ALCOHOL (ETHANOL) < 0.003 % (0.000-0.010)
[2018-09-28] MEDS ORDERED: amLODIPine 5 MG TAB PO ONE (17:45)
[2018-09-28] MEDS ORDERED: FAMOTIDINE INJ 20MG/2ML VIAL (S0028) IVP SCH (18:00)
[2018-09-28] MEDS ORDERED: ONDANSETRON 4MG/2ML VIAL (J2405) IV PRN (18:00)
--- NOTE | 2018-09-28 18:14 | HPEPDOC ---
General Date of Admission 09/28/18 Date of Service: Sep 28, 2018 Other Providers PCP- Osmani Lira Attending Physician: LAM GUZMAN DO Chief Complaint The patient is a 33-year-old female admitted with a reason for visit of Vomiting. Source: Patient Exam Limitations: No limitations Timing/Duration: Day(s), Getting worse, Changing over time Severity: Severe Associated Symptoms: Loss of appetite, Malaise, Nausea, Vomiting, Other (diarrhea - black liquidy, no formed stool) History of Present Illness 33 yo black female with history of chronic abdomen pain seen in with worsening of symptoms. She states over past "couple weeks" she has had decreased appetite, nausea and fatigue. She has had "years" of chronic abdomen pain described as sharp,fleeting and cramping. Yesterday she began having N,V and constant cramping abdomen pain over entire abdomen (not localized) with radiation to back. She thought it may be her pancreas "acting up again". She states last episode of pancreatitis was 1 month ago. She states over past 2-3 days has had dark explosive watery black diarrhea (shana squirts), and fecal urgency after diarrhea. no fever. no CP, no SOB, no AARON. Unable to keep blood pressure medication (lisinopril) down. able to keep small sips of water down. FDLMP 09/23/18 , lasted 3 days and stopped (normal cycle) Home Medications Scheduled Lisinopril/Hydrochlorothiazide (Lisinopril-Hctz 20-12.5 mg Tab) 1 Each Tablet, 1 TAB PO DAILY, (Reported) Meloxicam (Mobic) 7.5 Mg Tablet, 7.5 MG PO BID, (Reported) Scheduled PRN Trazodone HCl (Trazodone HCl) 100 Mg Tablet, 100 MG PO QHS PRN for SLEEP, (Reported) Allergies Coded Allergies: vancomycin (Verified Allergy, Unknown, RASH, 08/06/18) Penicillins (Verified Adverse Reaction, Unknown, SHOCK, 08/06/18) Past Medical History Medical History HTN Pancreatitis Bowel obstruction 2016 (after last c section) - resolved without surgery Surgical History s/p adela EGD/ERCP IUD removal after migrated thru uterine wall 3 C sections 1 D &C Explor lap 2017 Breast augmentation s/p BTL Family History Significant Family History: Other (father from pancreatitis complications; mother alive with "female" problems) Social History * Smoker: non-smoker Alcohol: rarely (2 glasses wine a week; last binge drinking/excess drinking 1- 2 months ago) Drugs: denies A-FIB/CHADSVASC A-FIB History Current/History of A-Fib/PAF?: No Review of Systems Other systems 10 comprehensive systems reviewed and negative except as per HPI Physical Examination General Exam: Positive: Alert, Cooperative, Mild Distress Eye Exam: Positive: PERRLA, Conjunctiva & lids normal, EOMI ENT Exam: Positive: Atraumatic, Mucous membr. moist/pink, Pharynx Normal, Tongue Midline, Nares Patent Neck Exam: Positive: Supple, +2 carotid pulse wo bruit Chest Exam: Positive: Clear to auscultation, Normal air movement, Other (+ tenderness to thoracic and upper lumbar spine with gentle percussion; n o CVA tenderness) Heart Exam: Positive: Tachycardic (with pain at 110 bpm, without pain 80 bpm) Telemetry: Positive: No significant arrhythmia, Sinus Abdomen Exam: Positive: BS Hyperactive, Soft, Tenderness (diffuse all quadrants, worse in R/L LQ, no rebound, no rigidity) Extremity Exam: Positive: Normal pulses; Negative: Clubbing, Cyanosis, Edema, Tenderness Skin Exam: Positive: Nl turgor and temperature Neuro Exam: Positive: Normal Speech, Strength at 5/5 X4 ext, Normal Tone, Cranial Nerves 3-12 NL Psych Exam: Positive: Mental status NL, Mood NL, Oriented x [address] ABD/PEL with contrast - Impression: Wall thickening of the ascending colon and transverse colon, compatible with colitis in the appropriate clinical setting. No ascites or adenopathy. The pancreas is unremarkable. The right adnexal cyst identified on the previous study has involuted. Vital Signs Vital Signs Date Time Temp Pulse Resp B/P (MAP) Pulse Ox O2 Delivery O2 Flow Rate FiO2 09/28/18 16:32 98.6 99 17 155/100 (118) 100 Room Air Laboratory Data Labs 24H Laboratory Tests 2 09/28/18 10:52: Immature Granulocyte % (Auto) 0.4, White Blood Count 10.5H, Red Blood Count 4.75, Hemoglobin 14.3, Hematocrit 43.5, Mean Corpuscular Volume 91.6, Mean Corpuscular Hemoglobin 30.1, Mean Corpuscular Hemoglobin Concent 32.9, Red Cell Distribution Width 13.0, Platelet Count 148L, Neutrophils (%) (Auto) 87.7H, Lymphocytes (%) (Auto) 4.8L, Monocytes (%) (Auto) 7.0H, Eosinophils (%) (Auto) 0.0, Basophils (%) (Auto) 0.1, Neutrophils # (Auto) 9.2H, Lymphocytes # (Auto) 0.5L, Monocytes # (Auto) 0.7, Eosinophils # (Auto) 0.0, Basophils # (Auto) 0.0, Nucleated Red Blood Cells % (auto) 0.0, Anion Gap 19H, Glomerular Filtration Rate > 60.0, Calcium Level 9.0, Aspartate Amino Transf (AST/SGOT) 54H, Alanine Aminotransferase (ALT/SGPT) 19, Alkaline Phosphatase 121H, Total Bilirubin 0.7, Direct Bilirubin 0.2, Total Protein 8.9H, Albumin 3.6, Albumin/Globulin Ratio 0.68L, Lipase 2060H 09/28/18 10:55: POC Beta HCG, Quantitative < 5.0 09/28/18 11:58: Urine Color YELLOW, Urine Appearance HAZY, Urine pH 6.0, Urine Specific Sophia 1.026, Urine Protein 3+H, Urine Glucose (UA) 1+H, Urine Ketones 2+H, Urine Blood 3+H, Urine Nitrite NEGATIVE, Urine Bilirubin NEGATIVE, Urine Urobilinogen 2.0H, Urine Leukocyte Esterase NEGATIVE, Urine WBC (Auto) 2, Urine RBC (Auto) 23H, Urine Hyaline Casts (Auto) 10, Urine Bacteria (Auto) NEGATIVE, Urine Squamous Epithelial Cells 3, Urine Amorphous Sediment SMALLH, Urine Mucus (Auto) SMALL, Urine Sperm (Auto) CBC/BMP Laboratory Tests 09/28/18 10:52 Red Blood Count 4.75, Mean Corpuscular Volume 91.6, Mean Corpuscular Hemoglobin 30.1, Mean Corpuscular Hemoglobin Concent 32.9, Red Cell Distribution Width 13.0, Neutrophils (%) (Auto) 87.7 H, Lymphocytes (%) (Auto) 4.8 L, Monocytes (%) (Auto) 7.0 H, Eosinophils (%) (Auto) 0.0, Basophils (%) (Auto) 0.1, Neutrophils # (Auto) 9.2 H, Lymphocytes # (Auto) 0.5 L, Monocytes # (Auto) 0.7, Eosinophils # (Auto) 0.0, Basophils # (Auto) 0.0 RAD Interpretation STUDY: Rad Actions: Report Reviewed, Films Reviewed, Discussed with the pt RAD Interpretation: Other Result Comments: (normal pancreas; colitis as described above) Assessment/Plan OBSERVATION 1) generalized abdomen pain with diarrhea due to Colitis Repeat lipase, zofran prn; Flagyl/levaquin; prn morphine/oxycodone. stool studies (GI panel), hemocult stool; start Pepcid IV (given black stool until occult back) NPO x meds and sips; IVF KUB in AM Non surgical abdomen at this time. serial abd exam and If abdomen exam changes, will consult surgery 2) history of pancreatitis - no signs on current exam 3) HTN - hold HCTZ; hold lisinopril ; start norvasc Plan / VTE VTE Prophylaxis Ordered?: Yes LAM GUZMAN DO Sep 28, 2018 16:48
[2018-09-28] MEDS: oxyCODONE 5MG TAB PO PRN (18:45)
[2018-09-28 19:00] VITALS: BP 150/101
[2018-09-28 19:38] LABS: ERYTHROCYTE SEDIMENTATION RATE 7 mm/hr (0-20)
[2018-09-28] MEDS: NS 1,000 ML IV SCH (19:51)
[2018-09-28] MEDS: metroNIDAZOLE 500 MG in APPROPRIATE DILUENT 1 EA IV SCH (19:55)
[2018-09-28] MEDS ORDERED: THIAMINE 100 MG TAB PO SCH (21:00)
[2018-09-28 22:00] VITALS: BP 139/95
[2018-09-28] MEDS: FAMOTIDINE IV BAG 20 MG in APPROPRIATE DILUENT 1 EA IV SCH (23:05)
[2018-09-28] MEDS: traZODone 100 MG TAB PO SCH (23:06)
[2018-09-28] MEDS: MORPHINE 4 MG/ML 1ML VIAL/SYRINGE (J2270) IV PRN (23:09)
[2018-09-29] MEDS: oxyCODONE 5MG TAB PO PRN ×5 (00:36→21:02)
[2018-09-29] MEDS: metroNIDAZOLE 500 MG in APPROPRIATE DILUENT 1 EA IV SCH ×5 (00:36→23:22)
[2018-09-29 06:00] VITALS: BP 127/91
[2018-09-29 06:19] LABS: HEMATOCRIT 34.6 % (36.0-47.0); MEAN CORPUSCULAR HGB CONC 33.8 g/dl (32.0-36.5); MEAN CORPUSCULAR VOLUME 91.8 fl (80.0-96.0); PLATELET COUNT, AUTOMATED 107 10^3/uL (150-450); RED BLOOD COUNT 3.77 10^6/uL (4.00-5.40); WHITE BLOOD COUNT 6.2 10^3/uL (4.0-10.0)
[2018-09-29 06:22] LABS: HEMOGLOBIN 11.7 g/dl (12.0-15.5)
[2018-09-29 06:46] LABS: ERYTHROCYTE SEDIMENTATION RATE 60 mm/hr (0-20)
[2018-09-29 06:53] LABS: ALBUMIN 2.8 GM/DL (3.2-5.2); ALT/SGPT 22 U/L (12-78); BILIRUBIN,TOTAL 0.6 MG/DL (0.2-1.0); BLOOD UREA NITROGEN 11 MG/DL (7-18); C REACTIVE PROTEIN QUANTITATIV 8.08 MG/DL (0.00-0.30); CALCIUM LEVEL 7.3 MG/DL (8.5-10.1); CARBON DIOXIDE LEVEL 23 MEQ/L (21-32); CHLORIDE LEVEL 105 MEQ/L (98-107); CREATININE FOR GFR 0.51 MG/DL (0.55-1.30); GLOMERULAR FILTRATION RATE > 60.0 (>60); GLUCOSE, FASTING 128 MG/DL (70-100); LIPASE 1899 U/L (73-393); POTASSIUM SERUM 3.2 MEQ/L (3.5-5.1); SODIUM LEVEL 136 MEQ/L (136-145); TOTAL PROTEIN 6.6 GM/DL (6.4-8.2)
--- NOTE | 2018-09-29 08:06 | REP ---
Supine abdomen, single AP view: Comparison is the abdomen pelvis CT dated 09/28/2018. The bowel gas pattern is normal. The right upper quadrant surgical clips. There is a faintly visible inverted U-shaped metallic density measuring 11 mm superimposed over the pelvis superiorly on the left, of uncertain significance. This could be extrinsic to the patient or within the patient as seen in this single view. There is mild lumbar scoliosis convex left. The skeletal structures and soft tissues otherwise are unremarkable. Impression: Normal bowel gas pattern. Surgical clips as described. 30. Shaped metallic density in the pelvis as described. The Electronically Signed by Liam Burgess MD 09/29/2018 07:58 A
[2018-09-29] MEDS: MORPHINE 4 MG/ML 1ML VIAL/SYRINGE (J2270) IV PRN ×4 (08:07→23:22)
[2018-09-29] MEDS: NS 1,000 ML IV SCH ×2 (08:07→12:19)
[2018-09-29] MEDS: ENOXAPARIN 40 MG/0.4 ML SYRINGE (J1650) SC SCH (08:07)
[2018-09-29] MEDS: FOLIC ACID 1 MG TAB PO SCH (08:07)
[2018-09-29] MEDS: MULTIVITAMINS/MINERALS THERAP 1 TAB PO SCH (08:07)
[2018-09-29] MEDS: amLODIPine 5 MG TAB PO SCH ×2 (08:10→21:02)
[2018-09-29] MEDS: POTASSIUM CHLORIDE 10 MEQ SR TABLET PO SCH ×2 (09:16→21:01)
[2018-09-29] MEDS: FAMOTIDINE IV BAG 20 MG in APPROPRIATE DILUENT 1 EA IV SCH ×2 (09:17→21:02)
--- NOTE | 2018-09-29 12:57 | REP ---
Supine abdomen, single upright view: Comparison is the supine abdomen performed at 07:47 a.m. earlier today. The pelvis is excluded at the inferior film margin. The visualized bowel gas pattern is normal. The inverted U-shaped metallic density noted in the pelvis on the prior study is excluded at the inferior film margin. Surgical clips are again identified in the right upper quadrant. There is no free subdiaphragmatic air. Impression: The pelvis is excluded at the inferior film margin. The visualized bowel gas pattern is normal. Electronically Signed by Liam Burgess MD 09/29/2018 12:49 P
[2018-09-29 14:00] VITALS: BP 152/99
--- NOTE | 2018-09-29 15:31 | IPNPDOC ---
Text Note Date of Service The patient was seen on 09/29/18. NOTE s: patient being seen for colitis. states abd cramping pain intermittent and still present but no further diarrhea or stool since admission. no fever. states pain worse when taking sips of clear liquids. nausea improved. O: Vitals as below General: pleasant, NAD AAOx3 HRRR no murmur LCTA no W/R/R, no CVA tenderness Abdomen: guarding, but no rebound, no rigidity; increased bowel sounds but no high pitch noises; diffusely nonspecific tenderness Xray: Supine KUB with foreign body - suspect artificat or material on gown. repeat standing KUB cut off at base. No signs of ileus. Will repeat acute abdomen xray series tomorrow for resolution A/P: Colitis - awaiting stools studies. clear liquids, pain control, continue levaquin and rocephin. WBC improved. ESR,CRP improved history of pancreatitis - no signs on current exam HTN - hold HCTZ; hold lisinopril ; BP slow to improve. increase norvasc to 10mg Hypokalemia due to diarrhea - should improved with replacement. VS,Fishbone, I+O VS, Fishbone, I+O Laboratory Tests 09/29/18 05:46 Red Blood Count 3.77 L, Mean Corpuscular Volume 91.8, Mean Corpuscular Hemoglobi n 31.0, Mean Corpuscular Hemoglobin Concent 33.8, Red Cell Distribution Width 12.7, Calcium Level 7.3 #L, Aspartate Amino Transf (AST/SGOT) 32, Alanine Aminotransferase (ALT/SGPT) 22, Alkaline Phosphatase 89, Total Bilirubin 0.6, Total Protein 6.6 #, Albumin 2.8 #L Vital Signs Date Time Temp Pulse Resp B/P (MAP) Pulse Ox O2 Delivery O2 Flow Rate FiO2 09/29/18 14:53 18 09/29/18 14:00 97.8 105 152/99 (116) 100 09/28/18 18:39 Room Air I&O- Last 24 Hours up to 6 AM 09/29/18 06:00 Intake Total 1900 ml Balance 1900 ml LAM GUZMAN DO Sep 29, 2018 15:31
[2018-09-29] MEDS ORDERED: LevoFLOXacin IV 750 MG in APPROPRIATE DILUENT 1 EA IV SCH (16:00)
[2018-09-29] MEDS: ONDANSETRON 4 MG ORAL DISINTEGRATING TAB (Q0162 PER 1MG) PO PRN (16:40)
[2018-09-29] MEDS: traZODone 100 MG TAB PO SCH (21:01)
[2018-09-29 22:00] VITALS: BP 140/94
[2018-09-30] MEDS: oxyCODONE 5MG TAB PO PRN ×4 (03:08→20:09)
[2018-09-30] MEDS: metroNIDAZOLE 500 MG in APPROPRIATE DILUENT 1 EA IV SCH (05:33)
[2018-09-30 06:00] VITALS: BP 138/90
[2018-09-30 06:48] LABS: HEMATOCRIT 36.3 % (36.0-47.0); HEMOGLOBIN 12.3 g/dl (12.0-15.5); MEAN CORPUSCULAR HEMOGLOBIN 31.1 pg (27.0-33.0); MEAN CORPUSCULAR HGB CONC 33.9 g/dl (32.0-36.5); MEAN CORPUSCULAR VOLUME 91.7 fl (80.0-96.0); PLATELET COUNT, AUTOMATED 112 10^3/uL (150-450); RED BLOOD COUNT 3.96 10^6/uL (4.00-5.40); WHITE BLOOD COUNT 7.5 10^3/uL (4.0-10.0)
[2018-09-30 07:14] LABS: ALBUMIN 2.8 GM/DL (3.2-5.2); ALT/SGPT 14 U/L (12-78); BILIRUBIN,TOTAL 0.6 MG/DL (0.2-1.0); BLOOD UREA NITROGEN 3 MG/DL (7-18); C REACTIVE PROTEIN QUANTITATIV 6.27 MG/DL (0.00-0.30); CALCIUM LEVEL 7.6 MG/DL (8.5-10.1); CARBON DIOXIDE LEVEL 24 MEQ/L (21-32); CHLORIDE LEVEL 102 MEQ/L (98-107); CREATININE FOR GFR 0.46 MG/DL (0.55-1.30); GLOMERULAR FILTRATION RATE > 60.0 (>60); GLUCOSE, FASTING 100 MG/DL (70-100); LIPASE 1101 U/L (73-393); POTASSIUM SERUM 3.6 MEQ/L (3.5-5.1); SODIUM LEVEL 135 MEQ/L (136-145)
[2018-09-30 07:20] LABS: ERYTHROCYTE SEDIMENTATION RATE 58 mm/hr (0-20)
--- NOTE | 2018-09-30 08:15 | REP ---
Acute abdominal series three views including PA chest and supine upright abdomen: Comparisons are 09/29/2018. PA chest: There are no comparison chest films. On the prior studies. Lung aleman are clear. Cardiac size is normal. The kranthi, mediastinum, and skeletal structures are unremarkable except for scoliosis convex left at the thoracolumbar junction, unchanged. There is no free subdiaphragmatic air. Impression: Negative PA chest except for scoliosis. Abdomen, supine upright views: The bowel gas pattern is normal and unchanged. There are surgical clips in the abdominal right upper quadrant, unchanged. There is an inverted U-shaped metallic density superimposed over the pelvis superiorly on the left, unchanged, possibly a foreign body. This could be in or on the patient. Impression: Normal bowel gas pattern. Electronically Signed by Liam Burgess MD 09/30/2018 08:07 A
[2018-09-30] MEDS: FOLIC ACID 1 MG TAB PO SCH (08:20)
[2018-09-30] MEDS: FAMOTIDINE IV BAG 20 MG in APPROPRIATE DILUENT 1 EA IV SCH (08:20)
[2018-09-30] MEDS: MULTIVITAMINS/MINERALS THERAP 1 TAB PO SCH (08:20)
[2018-09-30] MEDS: NS 1,000 ML IV SCH (08:20)
[2018-09-30] MEDS: POTASSIUM CHLORIDE 10 MEQ SR TABLET PO SCH (08:21)
[2018-09-30] MEDS: ENOXAPARIN 40 MG/0.4 ML SYRINGE (J1650) SC SCH (08:21)
[2018-09-30] MEDS: amLODIPine 5 MG TAB PO SCH ×2 (08:22→20:08)
[2018-09-30] MEDS: LevoFLOXacin 750 MG TABLET PO SCH (10:06)
[2018-09-30 14:00] VITALS: BP 116/82
[2018-09-30] MEDS ORDERED: MORPHINE 4 MG/ML 1ML VIAL/SYRINGE (J2270) IV PRN (18:45)
--- NOTE | 2018-09-30 18:51 | IPNPDOC ---
Text Note Date of Service The patient was seen on 09/30/18 @ 845 am. NOTE S: Greatly improved. no stool since admission. minimal abdomen pain. poor sleep with back pain because of bed per patient. She is requesting advance diet and hungry. no fever. Patient is being seen for colitis O: Vitals as below General : pleasant NAD AAOx3 HRRR LCTA Abdomen: soft, mild diffuse tender, no rebound no rigidity, no guarding Ext no edema A/P: Colitis - change to po antibiotics advance diet ambulate if tolerates diet possible d/c this afternoon or tomorrow am VS,Fishbone, I+O VS, Fishbone, I+O Laboratory Tests 09/30/18 06:15 Red Blood Count 3.96 L, Mean Corpuscular Volume 91.7, Mean Corpuscular H emoglobin 31.1, Mean Corpuscular Hemoglobin Concent 33.9, Red Cell Distribution Width 12.3, Calcium Level 7.6 L, Aspartate Amino Transf (AST/SGOT) 36, Alanine Aminotransferase (ALT/SGPT) 14, Alkaline Phosphatase 83, Total Bilirubin 0.6, Total Protein 7.0, Albumin 2.8 L Vital Signs Date Time Temp Pulse Resp B/P (MAP) Pulse Ox O2 Delivery O2 Flow Rate FiO2 09/30/18 08:22 116 126/94 09/30/18 08:21 16 09/30/18 06:00 97.8 100 09/28/18 18:39 Room Air I&O- Last 24 Hours up to 6 AM 09/30/18 06:00 Intake Total 4510 ml Output Total 1775 ml Balance 2735 ml LAM GUZMAN DO Sep 30, 2018 09:10
[2018-09-30] MEDS: traZODone 100 MG TAB PO SCH (20:08)
[2018-09-30 22:00] VITALS: BP 130/99
[2018-10-01] MEDS: oxyCODONE 5MG TAB PO PRN ×2 (03:21→08:33)
[2018-10-01] MEDS: LevoFLOXacin 750 MG TABLET PO SCH (05:34)
[2018-10-01 06:00] VITALS: BP 119/86
[2018-10-01 06:41] LABS: BASO % 0.2 % (0.0-1.0); EOS % 0.4 % (0.0-3.0); HEMATOCRIT 37.9 % (36.0-47.0); HEMOGLOBIN 12.7 g/dl (12.0-15.5); LYMPH % 12.7 % (24.0-44.0); MEAN CORPUSCULAR HEMOGLOBIN 29.9 pg (27.0-33.0); MEAN CORPUSCULAR HGB CONC 33.5 g/dl (32.0-36.5); MEAN CORPUSCULAR VOLUME 89.2 fl (80.0-96.0); MONO # 0.9 10^3/uL (0.0-0.8); MONO % 11.5 % (0.0-5.0); NEUTROPHILS % 74.8 % (36.0-66.0); PLATELET COUNT, AUTOMATED 137 10^3/uL (150-450); RED BLOOD COUNT 4.25 10^6/uL (4.00-5.40)
[2018-10-01 07:15] LABS: BLOOD UREA NITROGEN 5 MG/DL (7-18); C REACTIVE PROTEIN QUANTITATIV 5.79 MG/DL (0.00-0.30); CALCIUM LEVEL 8.3 MG/DL (8.5-10.1); CARBON DIOXIDE LEVEL 27 MEQ/L (21-32); CHLORIDE LEVEL 99 MEQ/L (98-107); CREATININE FOR GFR 0.54 MG/DL (0.55-1.30); GLOMERULAR FILTRATION RATE > 60.0 (>60); GLUCOSE, FASTING 156 MG/DL (70-100); POTASSIUM SERUM 3.2 MEQ/L (3.5-5.1); SODIUM LEVEL 132 MEQ/L (136-145)
[2018-10-01 08:26] LABS: ERYTHROCYTE SEDIMENTATION RATE 69 mm/hr (0-20)
[2018-10-01 08:28] LABS: LIPASE 1043 U/L (73-393)
[2018-10-01] MEDS: MULTIVITAMINS/MINERALS THERAP 1 TAB PO SCH (08:32)
[2018-10-01] MEDS: ONDANSETRON 4 MG ORAL DISINTEGRATING TAB (Q0162 PER 1MG) PO PRN (08:32)
[2018-10-01 08:35] VITALS: BP 123/81
[2018-10-01] MEDS: ENOXAPARIN 40 MG/0.4 ML SYRINGE (J1650) SC SCH (08:35)
[2018-10-01] MEDS: amLODIPine 5 MG TAB PO SCH (08:35)
[2018-10-01] MEDS: FOLIC ACID 1 MG TAB PO SCH (08:36)
[2018-10-01] MEDS ORDERED: POTASSIUM CHLORIDE 10 MEQ SR TABLET PO ONE (09:00)
--- NOTE | 2018-10-01 09:49 | IPNPDOC ---
Text Note Date of Service The patient was seen on 10/01/18. NOTE 33 yo female admitted with N,V,Diarrhea and colitis seen on CT Scan S: patient able to tolerate full liquid diet with no N,V. states abdomen pain more in RLQ. has not had diarrhea or stool since 09/28. Patient states hesitant to use MOM or cathartic meds because "goes right thru me". no fever. still with abdomen pain radiating to back O: Vitals as below General: pleasant mild distress with RLQ abd pain, eating full liquid breakfast HRRR LCTA Abdomen soft NABS in ALL 4 quadrants, RLQ tenderness with guarding but no rebound, no rigidity Ext: no edema A/P: Colitis - unable to obtain stools studies. will check CT with contrast to r/o appendicitis -This may also be acute on chronic abdomen pain due to underlyng inflammatory bowel - which can further be worked up as outpatient if the CT is negative, since she is tolerating full liquid diet. Elevated ESR/CRP and lipase - due to colitis. improving. May also represent inflammatory bowel component that can be followed up as outpatient. history of pancreatitis - no signs on current exam HTN - BP improved with norvasc Hypokalemia -replacement ordered. If CT Scan negative , possible d/c home today VS,Fishbone, I+O VS, Fishbone, I+O Laboratory Tests 10/01/18 05:58 Red Blood Count 4.25, Mean Corpuscular Volume 89.2, Mean Corpuscular Hemoglobin 29.9, Mean Corpuscular Hemoglobin Concent 33.5, Red Cell Distribution Width 12.1, Neutrophils (%) (Auto) 74.8 H, Lymphocytes (%) (Auto) 12.7 L, Monocytes (%) (Auto) 11.5 H, Eosinophils (%) (Auto) 0.4, Basophils (%) (Auto) 0.2, Neutrophils # (Auto) 6.0, Lymphocytes # (Auto) 1.0 L, Monocytes # (Auto) 0.9 H, Eosinophils # (Auto) 0.0, Basophils # (Auto) 0.0, Calcium Level 8.3 L Vital Signs Date Time Temp Pulse Resp B/P (MAP) Pulse Ox O2 Delivery O2 Flow Rate FiO2 10/01/18 08:35 114 123/81 6/24/19 08:33 18 10/01/18 06:00 99.4 100 09/28/18 18:39 Room Air I&O- Last 24 Hours up to 6 AM 10/01/18 06:00 Intake Total 1540 ml Output Total 2000 ml Balance -460 ml LAM GUZMAN DO Oct 01, 2018 09:49
[2018-10-01] MEDS: GASTROGRAFIN SOLUTION 30ML PO SCH (11:09)
[2018-10-01] MEDS ORDERED: ISOVUE-370 76% 100ML VIAL (Q9967) As Ordered ONE (12:28)
--- NOTE | 2018-10-01 12:58 | REP ---
Clinical: Acute right lower quadrant pain. Technique: Axial contrast enhanced images from the lung bases to the pubic symphysis using oral (per protocol) and 100 ml Isovue 370 intravenous contrast material with coronal and sagittal re-formations. Comparison: 09/28/2018. Findings: Lung bases are clear. Visualized heart and pericardium normal. Hepatosteatosis noted without focal hepatic lesion. Spleen, pancreas, bilateral adrenal glands and kidneys are normal. 1.1 cm right renal hypodensity remains stable and consistent with cyst. Cholecystectomy. The enteric system is without obstruction or acute inflammatory process. Normal terminal ileum and appendix are identified in the right lower quadrant. Pelvis demonstrates collapsed bladder and age-appropriate uterus/adnexa. No ascites. No free air. No adenopathy. Abdominal aorta and vasculature without aneurysm or dissection. Musculoskeletal structures demonstrate chronic levoconvex scoliosis. Impression: 1. Chronic hepatic steatosis. 2. Stable right renal cyst. 3. No acute abdominopelvic pathology appreciated. Electronically Signed by Andres Hernandez MD 10/01/2018 12:50 P
[2018-10-01] MEDS ORDERED: AMLO5TAB6 PO (15:35)
--- NOTE | 2018-10-01 17:22 | DS.PDOC ---
Discharge Summary General Date of Admission Sep 28, 2018 at 16:47 Date of Discharge 10/01/18 observation Attending Physician: LAM GUZMAN DO Discharge Summary PROCEDURES PERFORMED DURING STAY: none. ADMITTING DIAGNOSES: acute on chronic abdomen pain HTN DISCHARGE DIAGNOSES: Colitis Elevated ESR/CRP and lipase - due to colitis. i history of pancreatitis - no signs on current exam HTN Hypokalemia due to diarrhea COMPLICATIONS/CHIEF COMPLAINT: Colitis; Htn. HISTORY OF PRESENT ILLNESS: 33 yo black female with history of chronic abdomen pain seen in with worsening of symptoms. She states over past "couple weeks" she has had decreased appetite, nausea and fatigue. She has had "years" of chronic abdomen pain described as sharp,fleeting and cramping. Yesterday she began having N,V and constant cramping abdomen pain over entire abdomen (not localized) with radiation to back. She thought it may be her pancreas "acting up again". She states last episode of pancreatitis was 1 month ago. She states over past 2-3 days has had dark explosive watery black diarrhea (shana squirts), and fecal urgency after diarrhea. no fever. no CP, no SOB, no AARON. Unable to keep blood pressure medication (lisinopril) down. able to keep small sips of water down. See H&P for details HOSPITAL COURSE: patient placed under observation. She had no further diarrhea after admission, therefore hemocult and stool studies not collected. She was placed on levaquin and flagyl with improvement to WBC. She felt the flagyl was causing myalgia and antibiotic was stopped. Her WBC remained stable. Her diet was advanced and patient continued to improve. Repeat CT Scan prior to disch arge because of continued chronic abdomen pain in RLQ demonstrated resolution of colitis and no signs of appendicitis. I did discuss with patient the risk of multiple repeated CT scans and she wanted to proceed with test. Patient was able to tolerate full liquids and BRAT diet. Advanced to bland and was discharged home in stable condition. Her BP showed improve control with norvasc. DISCHARGE MEDICATIONS: Please see below. ALLERGIES: Please see below. PHYSICAL EXAMINATION ON DISCHARGE: VITAL SIGNS: Please see below. GENERAL: pleasant, NAD, AAOx3 HRRR LCTA no W/R/R ABDOMINAL EXAMINATION: soft, diffusely tender, NABS, no rebound, no rigidity EXTREMITIES: no edema; ambulating well in room and halls without pain. LABORATORY DATA: Please see below. IMAGING: CT on admission: CT 10/01/18: PROGNOSIS: good ACTIVITY: as tolerated DIET: bland DISCHARGE PLAN: discharge to home DISCHARGE INSTRUCTIONS: 1. bland diet 2. stop NSAIDS 3. Follow up with PCP in 5-7 days to recheck abdomen and discuss possible GI referral for chronic abdomen pain and to recheck BMP, blood pressure 4. stop lisinopril HCT; continue with norvasc for BP control DISCHARGE CONDITION: stable TIME SPENT ON DISCHARGE: 25 minutes Vital Signs/I&Os Vital Signs Date Time Temp Pulse Resp B/P (MAP) Pulse Ox O2 Delivery O2 Flow Rate FiO2 10/01/18 09:30 16 10/01/18 08:35 114 123/81 10/01/18 06:00 99.4 100 09/28/18 18:39 Room Air I&O- Last 24 Hours up to 6 AM 10/01/18 06:00 Intake Total 1540 ml Output Total 2000 ml Balance -460 ml Laboratory Data Labs 24H Laboratory Tests 2 10/01/18 05:58: Immature Granulocyte % (Auto) 0.4, White Blood Count 8.0, Red Blood Count 4.25, Hemoglobin 12.7, Hematocrit 37.9, Mean Corpuscular Volume 89.2, Mean Corpuscular Hemoglobin 29.9, Mean Corpuscular Hemoglobin Concent 33.5, Red Cell Distribution Width 12.1, Platelet Count 137L, Neutrophils (%) (Auto) 74.8H, Lymphocytes (%) (Auto) 12.7L, Monocytes (%) (Auto) 11.5H, Eosinophils (%) (Auto) 0.4, Basophils (%) (Auto) 0.2, Neutrophils # (Auto) 6.0, Lymphocytes # (Auto) 1.0L, Monocytes # (Auto) 0.9H, Eosinophils # (Auto) 0.0, Basophils # (Auto) 0.0, Nucleated Red Blood Cells % (auto) 0.0, Erythrocyte Sedimentation Rate 69H, Anion Gap 6L, Glomerular Filtration Rate > 60.0, Blood Urea Nitrogen 5#L, Creatinine 0.54L, Sodium Level 132L, Potassium Level 3.2L, Chloride Level 99, Carbon Dioxide Level 27, Calcium Level 8.3L, C-Reactive Protein, Quantitative 5.79H, Lipase 1043H CBC/BMP Laboratory Tests 10/01/18 05:58 Red Blood Count 4.25, Mean Corpuscular Volume 89.2, Mean Corpuscular Hemoglobin 29.9, Mean Corpuscular Hemoglobin Concent 33.5, Red Cell Distribution Width 12.1, Neutrophils (%) (Auto) 74.8 H, Lymphocytes (%) (Auto) 12.7 L, Monocytes (%) (Auto) 11.5 H, Eosinophils (%) (Auto) 0.4, Basophils (%) (Auto) 0.2, Neut rophils # (Auto) 6.0, Lymphocytes # (Auto) 1.0 L, Monocytes # (Auto) 0.9 H, Eosinophils # (Auto) 0.0, Basophils # (Auto) 0.0, Calcium Level 8.3 L Microbiology Microbiology 09/28/18 Blood Culture - Preliminary, Resulted No Growth after 48 hours. All Specime... Discharge Medications Scheduled Amlodipine Besylate (Amlodipine Besylate) 5 Mg Tablet, 5 MG PO BID Scheduled PRN Trazodone HCl (Trazodone HCl) 100 Mg Tablet, 100 MG PO QHS PRN for SLEEP, (Reported) Allergies Coded Allergies: vancomycin (Verified Allergy, Unknown, RASH, 08/06/18) Penicillins (Verified Adverse Reaction, Unknown, SHOCK, 08/06/18) LAM GUZMAN DO Oct 01, 2018 15:37
== END 2018-10-01 18:22 | disposition home or self-care (01) ==
LOC: M ED 10:14 → M ED INP 16:47 → M MSPAV 18:56
PROVIDERS: ADMIT Family Medicine; ATTEND Family Medicine
DX: K52.89 Other specified noninfective gastroenteritis and colitis (principal); R70.0 Elevated erythrocyte sedimentation rate; R79.82 Elevated C-reactive protein (CRP); R74.8 Abnormal levels of other serum enzymes; I10 Essential (primary) hypertension; E87.6 Hypokalemia; Z87.19 Personal history of other diseases of the digestive system; Z79.899 Other long term (current) drug therapy; Z88.0 Allergy status to penicillin; Z88.1 Allergy status to other antibiotic agents
CPT/HCPCS: 36415; 74018; 74019; 74021; 74177; 80048; 80053; 80076; 81001; 83690; 84702; 85025; 85027; 85652; 86140; 87040; 96361; 96365; 96366; 96372; 96375; 96376; 99284; G0480; J1650; J1956; J2270; J2405; Q0162; Q9963; Q9967

== ENCOUNTER → 2018-12-06 | Outpatient (CLI) | payer OTHER ==
[~2018-12-06] MED LIST changes: +AMLO5TAB6 PO; -LISI20TA PO; +LISI20TA19 PO; -LISINOPRIL 20 MG TAB PO SCH
--- NOTE | 2018-12-06 11:01 | REP ---
Mandible series: Four views. History: Injury to the jaw. Findings: Four views of the mandible are presented. There is no evidence of mandibular fracture. The condylar necks appear intact. Paranasal sinuses are clear as visualized. Zygomatic arches appear intact. Impression: No fracture seen. Electronically Signed by Daryl Springer MD 12/06/2018 10:53 A
== END ==
LOC: M LRY 10:04
PROVIDERS: ATTEND Physician Assistant
DX: S09.93XA Unspecified injury of face, initial encounter (principal)
CPT/HCPCS: 70110; G0463

== ENCOUNTER 2019-02-01 17:24 | Inpatient (IN) | payer OTHER ==
[~2019-02-01] VITALS: Ht 170.2 cm; Wt 54.2 kg
[~2019-02-01 17:24] MED LIST changes: +SERT25TA21 PO; -SERT25TA88 PO
[2019-02-01] MEDS ORDERED: NS 1,000 ML IV ONE (18:15)
[2019-02-01] MEDS ORDERED: MORPHINE 4 MG/ML 1ML VIAL/SYRINGE (J2270) IV ONE ×2 (18:15→20:00)
[2019-02-01] MEDS ORDERED: ONDANSETRON 4MG/2ML VIAL (J2405) IV ONE (18:15)
[2019-02-01 18:43] LABS: BASO % 0.3 % (0.0-1.0); HEMATOCRIT 43.4 % (36.0-47.0); HEMOGLOBIN 14.7 g/dl (12.0-15.5); LYMPH % 14.5 % (24.0-44.0); MEAN CORPUSCULAR HEMOGLOBIN 31.7 pg (27.0-33.0); MEAN CORPUSCULAR HGB CONC 33.9 g/dl (32.0-36.5); MEAN CORPUSCULAR VOLUME 93.7 fl (80.0-96.0); MONO # 0.6 10^3/uL (0.0-0.8); MONO % 8.7 % (0.0-5.0); NEUTROPHILS # 5.3 10^3/uL (1.5-8.5); NEUTROPHILS % 76.1 % (36.0-66.0); PLATELET COUNT, AUTOMATED 81 10^3/uL (150-450); RED BLOOD COUNT 4.63 10^6/uL (4.00-5.40); WHITE BLOOD COUNT 6.9 10^3/uL (4.0-10.0)
[2019-02-01] MEDS ORDERED: LISI10TA4 PO (18:46)
[2019-02-01] MEDS ORDERED: APAP325T4 PO (18:47)
[2019-02-01 19:17] LABS: ALBUMIN 4.8 GM/DL (3.2-5.2); ALT/SGPT 27 U/L (12-78); AMYLASE 209 U/L (25-115); BILIRUBIN,DIRECT 0.2 MG/DL (0.0-0.2); BILIRUBIN,TOTAL 1.1 MG/DL (0.2-1.0); BLOOD UREA NITROGEN 8 MG/DL (7-18); CALCIUM LEVEL 9.6 MG/DL (8.5-10.1); CARBON DIOXIDE LEVEL 20 MEQ/L (21-32); CHLORIDE LEVEL 94 MEQ/L (98-107); CREATININE FOR GFR 0.76 MG/DL (0.55-1.30); GLOMERULAR FILTRATION RATE > 60.0 (>60); GLUCOSE, FASTING 82 MG/DL (70-100); LIPASE 1967 U/L (73-393); POTASSIUM SERUM 3.5 MEQ/L (3.5-5.1); SODIUM LEVEL 132 MEQ/L (136-145); TOTAL PROTEIN 9.2 GM/DL (6.4-8.2)
[2019-02-01] MEDS ORDERED: ACET500T15 PO (20:06)
[2019-02-01] MEDS ORDERED: LISI20TA19 PO (20:06)
[2019-02-01 20:15] LABS: ETHYL ALCOHOL (ETHANOL) < 0.003 % (0.000-0.010)
--- NOTE | 2019-02-01 20:26 | HPEPDOC ---
[facility] Medical History & Physical Date of Admission Feb 01, 2019 Date of Service: Feb 01, 2019 Primary Care Physician: A Other Provider Osmani Lira MD Attending Physician: ALESSANDRA WORKMAN MD History and Physical TIME OF SERVICE: 8:06 PM CHIEF COMPLAINT: Stomach pain HISTORY OF PRESENT ILLNESS: This is a 33-year-old female who presents with complaints of 8/10 in severity, aching abdominal and back pain that began yesterday. She came to the ED today because the pain became worse. Associated symptoms include nausea, non-bloody emesis, soft stools, and chills. 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 Per discussion with the provider she was seen at [facility] a few days ago and transferred to [facility] where she was treated for C. difficile colitis. Today her lipase was greater than 1000; she received morphine for the abdominal pain. REVIEW OF SYSTEMS: 12 point review of systems negative except as listed in HPI PAST MEDICAL/ SURGICAL HISTORY: Chronic hypertension. History of recurrent pancreatitis since childhood. Possible history of ulcerative colitis Status post 3 Status post small bowel resection for management of SBO secondary to adhesions Status post D&C. Status post tubal ligation Status post breast augmentation SOCIAL HISTORY: Former smoker. History of alcohol abuse, quit 6 months ago Denies history of recreational drug use FAMILY HISTORY: Father had pancreatitis ALLERGIES: Please see below. HOME MEDICATIONS: Please see below. PHYSICAL EXAMINATION: VITAL SIGNS: Please see below. GENERAL APPEARANCE: well-nourished, well-developed, appears to be in pain HEENT: normocephalic, atraumatic, mucous membranes moist and pink CARDIOVASCULAR: tachycardic. No murmurs, rubs or gallops LUNGS: clear to auscultation bilaterally on room air ABDOMEN: The abdomen is soft and tender even with light palpation MUSCULOSKELETAL: Range of motion intact in all 4 extremities. There is no lower extremity edema INTEGUMENT: negative ace's and lai's signs / there is a vertical keloid scar at the mid lower abdomen just below the umbilicus, which the patient attributes to small bowel resection. NEUROLOGICAL: Cranial nerves II-12 are grossly intact. Speech is not dysarthric PSYCHIATRIC: Alert and oriented to person, place and time, able to understand and follow commands LABORATORY DATA: See below. IMAGING: Ultrasound of the abdomen " IMPRESSION: 1. Cholecystectomy. 2. Hepatic steatosis. 3. Pancreas obscured by bowel gas but grossly unremarkable. " MICROBIOLOGY: Please see below. ASSESSMENT: Ms Bergman is a 33-year-old female with a past medical history of recurrent pancreatitis, chronic HTN and multiple abdominal surgeries, who will be admitted for management of abdominal pain likely secondary to pancreatitis. PLAN: 1. SIRS vs Possible Sepsis Source may be pancreatitis vs gastroenteritis She is c/o of n/v/d and abdominal pain. SIRS criteria include a heart rate of 113, respiratory rate of 24 Lactic acid is 1.6 Qsofa Score = 1. equals not high risk AST was elevated Plan: admit to general medical floor / telemetry / Sepsis protocol / no antibiotics as this time pending confirmation of a source true infection / switch from normal saline to lactate ringers / f/u blood cx, C. difficile, UA 2. Autoimmune Pancreatitis? The pancreatitis may be autoimmune in nature since her serum ETO was wnl and she has had a cholecystectomy. The diagnosis of pancreatitis was made based on the presence of abdominal pain and elevated lipase. Plan: NPO / IVF / f/u blood cx, C. difficile, UA and LDH to calculate [place]- Im[place] Pancreatitis Score & Cornell's criteria / IV ofrimev for pain and fevers along with IV morphine PRN for more severe pain / if the abdominal pain does not improve within 8-[address] hours we will order CT of the abdomen 3. Pure Anion gap metabolic acidosis. The Delta gap is 6 and the delta ratio is 1.5 Serum ETO, Cr, Urea and lactic acid are wnl, therefore possible causes include starvation ketoacidosis which is possible because her BMI is 18.7, salicylates, or toxins Plan: Follow-up tox screen & UA for ketones / f/u repeat BMP in the morning 4. Thrombocytopenia. Cause to be determined. Suspect this is due to reduced thrombopoietin production by the liver because her AST was elevated Ultrasound of the liver showed hepatic stenosis. Plan: Follow-up CBC /monitor for bleeding 5. Hepatic steatosis. Patient is not obese Plan:Trend LFTs /follow up coags 6. Chronic HTN Plan: Resume home meds 7. History of alcohol abuse Serum ethanol is within normal limits. AST was elevated Plan: telemetry / seizure precautions / Thiamine 100mg daily, Folic acid 1mg da fabian, MVI / IVF / Zofran PRN for n/v DVT prophylaxis with SCDs. Disposition pending clinical course Vital Signs Vital Signs Date Time Temp Pulse Resp B/P (MAP) Pulse Ox O2 Delivery O2 Flow Rate FiO2 02/01/19 20:08 18 02/01/19 18:45 99.7 113 156/90 (112) 100 Room Air Laboratory Data Labs 24H Laboratory Tests 2 02/01/19 18:12: Immature Granulocyte % (Auto) 0.4, Neutrophils (%) (Auto) 76.1H, Lymphocytes (%) (Auto) 14.5L, Monocytes (%) (Auto) 8.7H, Eosinophils (%) (Auto) 0.0, Basophils (%) (Auto) 0.3, Neutrophils # (Auto) 5.3, Lymphocytes # (Auto) 1.0L, Monocytes # (Auto) 0.6, Eosinophils # (Auto) 0.0, Basophils # (Auto) 0.0, Nucleated Red Blood Cells % (auto) 0.0, Immature Platelet Fraction 9.7H, Anion Gap 18H, Glomerular Filtration Rate > 60.0, Lactic Acid Level 1.6, Calcium Level 9.6, Total Bilirubin 1.1H, Direct Bilirubin 0.2, Aspartate Amino Transf (AST/SGOT) 64H, Alanine Aminotransferase (ALT/SGPT) 27, Alkaline Phosphatase 101, Total Protein 9.2H, Albumin 4.8, Albumin/Globulin Ratio 1.09, Amylase Level 209H, Lipase 1967H, Ethyl Alcohol Level < 0.003 CBC/BMP Laboratory Tests 02/01/19 18:12 Home Medications Scheduled Lisinopril/Hydrochlorothiazide (Lisinopril-Hctz 20-12.5 mg Tab) 1 Each Tablet, 1 TAB PO DAILY Scheduled PRN Acetaminophen (Acetaminophen) 500 Mg Tablet, 1,000 MG PO BID PRN for PAIN / FEVER Trazodone HCl (Trazodone HCl) 100 Mg Tablet, 100 MG PO QHS PRN for SLEEP Allergies Coded Allergies: Penicillins (Verified Allergy, Unknown, SHOCK, 02/01/19) vancomycin (Verified Allergy, Unknown, RASH, 08/06/18) A-FIB/CHADSVASC A-FIB History Current/History of A-Fib/PAF?: No Current PO Anticoag Therapy: No ALESSANDRA WORKMAN MD Feb 01, 2019 20:26
[2019-02-01] MEDS ORDERED: NS 1,000 ML IV SCH (20:30)
--- NOTE | 2019-02-01 21:34 | REPVR ---
PROCEDURE INFORMATION: Exam: US Abdomen Limited, Right Upper Quadrant Exam date and time: 02/01/2019 8:56 PM Clinical history: 33 years old, female; Abdominal pain; Epigastric; Prior surgery; Surgery date: 6+ months; Surgery type: Gallbladder removal; Additional info: Pancreatitis TECHNIQUE: Imaging protocol: Real-time ultrasound of the abdomen with image documentation. Examination was focused on the right upper quadrant. COMPARISON: CT ABD/PEL W/IV ORAL CONTRAS 10/01/2018 12:35 PM FINDINGS: Liver: Hepatic steatosis. Liver mild enlargement. Gallbladder: Cholecystectomy. Common bile duct: Normal. No stones. No dilation. Pancreas: Pancreas obscured by bowel gas but grossly unremarkable. Right kidney: Unremarkable 11 cm right kidney. 1 cm right renal cyst. IMPRESSION: 1. Cholecystectomy. 2. Hepatic steatosis. 3. Pancreas obscured by bowel gas but grossly unremarkable. COMMENT: Consistent with the [employer]'s Incidental Findings Committee Report (J Am Chantal Radiol 2010): Unless the patient's specific circumstances suggest otherwise, any liver lesion 0.5 cm or less, any cystic kidney lesion less than 1.0 cm, and/or any adrenal lesion 1.0 cm or less not otherwise characterized in this report as possessing suspicious or indeterminate imaging features is/are highly likely to be benign and do not require follow-up imaging or biopsy. Electronically signed by: Zuhair Bernal On 02/01/2019 21:33:37 PM
[2019-02-01] MEDS: MORPHINE 4 MG/ML 1ML VIAL/SYRINGE (J2270) IV PRN (21:40)
[2019-02-01] MEDS ORDERED: ONDANSETRON 4 MG TAB (S0181) PO PRN (22:30)
[2019-02-01] MEDS ORDERED: LORazepam 2 MG TAB PO PRN (22:30)
[2019-02-01 22:59] LABS: APPEARANCE, URINE CLEAR (CLEAR); BACTERIA, URINE AUTO NEGATIVE (NEGATIVE); BILIRUBIN, URINE AUTO NEGATIVE (NEGATIVE); BLOOD, URINE BLOOD 3+ (NEGATIVE); COLOR, URINE YELLOW (YELLOW); GLUCOSE, URINE (UA) AUTO NEGATIVE (NEGATIVE); KETONE, URINE AUTO 2+ mg/dL (NEGATIVE); LEUKOCYTE ESTERASE, URINE AUTO NEGATIVE (NEGATIVE); MUCUS, URINE SMALL (NEGATIVE); NITRITE, URINE AUTO NEGATIVE (NEGATIVE); PROTEIN, URINE AUTO 3+ mg/dL (NEGATIVE); RBC, URINE AUTO 5 /HPF (0-3); SPECIFIC GRAVITY URINE AUTO 1.026 (1.002-1.035); SQUAMOUS EPITHELIAL CELL UR AU 7 /HPF (0-6); UROBILINOGEN, URINE AUTO 0.2 mg/dL (0.0-2.0); WBC, URINE AUTO 0 /HPF (0-3)
[2019-02-01] MEDS: THIAMINE 100 MG TAB PO SCH (23:17)
[2019-02-01] MEDS: LR 1,000 ML IV SCH (23:18)
[2019-02-01 23:43] LABS: AMPHETAMINES LEVEL URINE NEGATIVE (NEGATIVE); BARBITURATES URINE NEGATIVE (NEGATIVE); BENZODIAZEPINES URINE NEGATIVE (NEGATIVE); CANNABINOIDS URINE NEGATIVE (NEGATIVE); COCAINE METABOLITE URINE NEGATIVE (NEGATIVE); METHADONE URINE NEGATIVE (NEGATIVE); OPIATES URINE POSITIVE (NEGATIVE); PHENCYCLIDINE URINE NEGATIVE (NEGATIVE)
[2019-02-02] MEDS: ACETAMINOPHEN *IV* 1,000 MG in IV 1 EA IV SCH ×3 (00:34→21:04)
[2019-02-02] MEDS: MORPHINE 4 MG/ML 1ML VIAL/SYRINGE (J2270) IV PRN ×4 (01:48→21:30)
[2019-02-02] MEDS: KETOROLAC TROMETHAMINE 10 MG TAB PO PRN ×3 (04:25→18:55)
[2019-02-02] MEDS: LR 1,000 ML IV SCH ×4 (05:39→23:11)
[2019-02-02 06:00] VITALS: BP 144/94
[2019-02-02 06:55] LABS: HEMATOCRIT 37.5 % (36.0-47.0); MEAN CORPUSCULAR HEMOGLOBIN 31.5 pg (27.0-33.0); MEAN CORPUSCULAR HGB CONC 33.6 g/dl (32.0-36.5); MEAN CORPUSCULAR VOLUME 93.8 fl (80.0-96.0); WHITE BLOOD COUNT 7.1 10^3/uL (4.0-10.0)
[2019-02-02 06:56] LABS: HEMOGLOBIN 12.6 g/dl (12.0-15.5); PLATELET COUNT, AUTOMATED 63 10^3/uL (150-450)
[2019-02-02 07:03] LABS: INR 1.14; PROTHROMBIN TIME 14.3 SECONDS (11.8-14.0)
[2019-02-02 07:15] LABS: ALBUMIN 3.4 GM/DL (3.2-5.2); ALT/SGPT 25 U/L (12-78); BLOOD UREA NITROGEN 8 MG/DL (7-18); CALCIUM LEVEL 8.4 MG/DL (8.5-10.1); CARBON DIOXIDE LEVEL 21 MEQ/L (21-32); CHLORIDE LEVEL 100 MEQ/L (98-107); CREATININE FOR GFR 0.57 MG/DL (0.55-1.30); GLOMERULAR FILTRATION RATE > 60.0 (>60); GLUCOSE, FASTING 80 MG/DL (70-100); POTASSIUM SERUM 3.3 MEQ/L (3.5-5.1); SODIUM LEVEL 132 MEQ/L (136-145); TOTAL PROTEIN 7.3 GM/DL (6.4-8.2)
[2019-02-02] MEDS: THIAMINE 100 MG TAB PO SCH ×2 (08:23→21:03)
[2019-02-02] MEDS ORDERED: MULTIVITAMINS/MINERALS THERAP 1 TAB PO SCH (09:00)
[2019-02-02] MEDS ORDERED: FOLIC ACID 1 MG TAB PO SCH (09:00)
--- NOTE | 2019-02-02 09:21 | REP ---
ABDOMINAL SERIES: Supine and erect views of the abdomen demonstrate no free air and no compelling evidence for obstruction. I do not see evidence of significant small bowel dilatation. There is a metallic clip in the left pelvis and there are a few metallic clips in the right upper quadrant. There is curvature of the thoracolumbar spine convex to the left. IMPRESSION: No evidence of free air and no evidence of small bowel obstruction. Electronically Signed by Liam Mcdonnell MD 02/02/2019 03:42 P
[2019-02-02] MEDS ORDERED: POTASSIUM CHLORIDE INJ 20 MEQ in D5W/LR 1,000 ML IV SCH (10:00)
--- NOTE | 2019-02-02 11:22 | IPNPDOC ---
Text Note Date of Service The patient was seen on 02/02/19. NOTE Subjective: Patient complains of left flank pain with left epigastric pain, which subsided from yesterday. Patient stated that she has appetite and she would like to eat. Objective: GENERAL APPEARANCE: well-nourished, well-developed, appears to be in pain HEENT: normocephalic, atraumatic, mucous membranes moist and pink CARDIOVASCULAR: No murmurs, rubs or gallops LUNGS: clear to auscultation bilaterally on room air ABDOMEN: The abdomen is soft and tender even with light palpation MUSCULOSKELETAL: Range of motion intact in all 4 extremities. There is no lower extremity edema NEUROLOGICAL: Cranial nerves II-12 are grossly intact. Speech is not dysarthric PSYCHIATRIC: Alert and oriented to person, place and time, able to understand and follow commands PROCEDURE INFORMATION: Exam: US Abdomen Limited, Right Upper Quadrant Exam date and time: 02/01/2019 8:56 PM Clinical history: 33 years old, female; Abdominal pain; Epigastric; Prior surgery; Surgery date: 6+ months; Surgery type: Gallbladder removal; Additional info: Pancreatitis TECHNIQUE: Imaging protocol: Real-time ultrasound of the abdomen with image documentation. Examination was focused on the right upper quadrant. COMPARISON: CT ABD/PEL W/IV ORAL CONTRAS 10/01/2018 12:35 PM FINDINGS: Liver: Hepatic steatosis. Liver mild enlargement. Gallbladder: Cholecystectomy. Common bile duct: Normal. No stones. No dilation. Pancreas: Pancreas obscured by bowel gas but grossly unremarkable. Right kidney: Unremarkable 11 cm right kidney. 1 cm right renal cyst. IMPRESSION: 1. Cholecystectomy. 2. Hepatic steatosis. 3. Pancreas obscured by bowel gas but grossly unremarkable. Assessment and plan Patient is 53 years old female with past medical history of recurrent pancreatitis, hypertension, C. difficile colitis treated 2 weeks ago presented hospital with abdominal pain. Patient was diagnosed with acute recurrent pancreatitis. Acute pancreatitis Patient has history of recurrent pancreatitis most likely autoimmune Lipase level was elevated 9967, amylase 209, LDH 252. Unlikely patient has common bile duct obstruction given normal bilirubin and negative right upper quadrant ultrasound Patient was afebrile on admission. Tachypnea with tachycardia most likely could be attributed to pain Today patient is nontoxic, afebrile, doesn't have leukocytosis. Continue supportive treatment with IV fluid Pain management Clear liquid diet Metabolic acidosis Resolved Thrombocytopenia Unknown etiology for now Most likely secondary to hepatic steatosis. Also patient has a history of alcohol abuse Hepatic steatosis Follow-up with project mgr in the outpatient settings History of alcohol abuse Serum ethanol is within normal limits. No signs or symptoms of alcohol withdrawal VS,Fishbone, I+O VS, Fishbone, I+O Laboratory Tests 02/01/19 18:12 02/02/19 06:19 Vital Signs Date Time Temp Pulse Resp B/P (MAP) Pulse Ox O2 Delivery O2 Flow Rate FiO2 02/02/19 06:00 98.7 92 16 144/94 (111) 100 Room Air I&O- Last 24 Hours up to 6 AM 02/02/19 06:00 Intake Total 1000 ml Balance 1000 ml GENTRY THOMPSON DO Feb 02, 2019 11:22
[2019-02-02] MEDS ORDERED: traZODone 100 MG TAB PO PRN (13:00)
[2019-02-02] MEDS ORDERED: POTASSIUM CHLORIDE 10 MEQ SR TABLET PO ONE (13:00)
[2019-02-02 14:00] VITALS: BP 153/98
[2019-02-02] MEDS ORDERED: hydroCHLOROthiazide 25 MG TAB PO ONE (14:00)
[2019-02-02] MEDS ORDERED: LISINOPRIL 20 MG TAB PO ONE (14:00)
--- NOTE | 2019-02-02 18:47 | ECGEPIP ---
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 Repolarization improved compared with 08/23/2018. Electronically Signed on 02-02-2019 18:46:57 EDT by Zuhair Weston
[2019-02-02 20:58] VITALS: BP 158/108
[2019-02-02 22:00] VITALS: BP_SYST 144; BP_SYST 158; BP_DIAS 100; BP_DIAS 108
[2019-02-02 23:56] VITALS: BP 144/100
[2019-02-03] MEDS: KETOROLAC TROMETHAMINE 10 MG TAB PO PRN ×2 (01:02→17:03)
[2019-02-03 02:00] VITALS: BP 150/108
[2019-02-03] MEDS: LR 1,000 ML IV SCH ×3 (04:21→16:05)
[2019-02-03] MEDS: MORPHINE 4 MG/ML 1ML VIAL/SYRINGE (J2270) IV PRN ×3 (04:42→22:54)
[2019-02-03 06:00] VITALS: BP 138/98
[2019-02-03 06:16] LABS: HEMATOCRIT 24.7 % (36.0-47.0); MEAN CORPUSCULAR HEMOGLOBIN 32.3 pg (27.0-33.0); MEAN CORPUSCULAR HGB CONC 34.4 g/dl (32.0-36.5); MEAN CORPUSCULAR VOLUME 93.9 fl (80.0-96.0); RED BLOOD COUNT 2.63 10^6/uL (4.00-5.40); WHITE BLOOD COUNT 3.6 10^3/uL (4.0-10.0)
[2019-02-03 06:17] LABS: HEMOGLOBIN 8.5 g/dl (12.0-15.5); PLATELET COUNT, AUTOMATED 43 10^3/uL (150-450)
[2019-02-03 06:51] LABS: ALBUMIN 2.4 GM/DL (3.2-5.2); ALT/SGPT 25 U/L (12-78); BILIRUBIN,TOTAL 0.6 MG/DL (0.2-1.0); BLOOD UREA NITROGEN 2 MG/DL (7-18); CARBON DIOXIDE LEVEL 24 MEQ/L (21-32); CHLORIDE LEVEL 99 MEQ/L (98-107); GLOMERULAR FILTRATION RATE > 60.0 (>60); GLUCOSE, FASTING 75 MG/DL (70-100); MAGNESIUM LEVEL 0.9 MG/DL (1.8-2.4); POTASSIUM SERUM 3.4 MEQ/L (3.5-5.1); SODIUM LEVEL 135 MEQ/L (136-145); TOTAL PROTEIN 4.9 GM/DL (6.4-8.2)
[2019-02-03] MEDS ORDERED: MAG SULF 1GM/100ML (MAG RUN) 1 GM in IV 1 EA IV ONE (07:00)
[2019-02-03] MEDS: ACETAMINOPHEN *IV* 1,000 MG in IV 1 EA IV SCH ×2 (09:35→20:48)
[2019-02-03] MEDS: THIAMINE 100 MG TAB PO SCH ×2 (09:36→20:46)
[2019-02-03] MEDS: hydroCHLOROthiazide 12.5 MG CAPSULE PO SCH (09:36)
[2019-02-03] MEDS: LISINOPRIL 20 MG TAB PO SCH (09:38)
[2019-02-03 10:00] VITALS: BP 142/90
[2019-02-03] MEDS ORDERED: POTASSIUM CHLORIDE 10 MEQ SR TABLET PO ONE (11:00)
[2019-02-03 14:00] VITALS: BP 138/80
[2019-02-03 18:00] VITALS: BP 137/98
--- NOTE | 2019-02-03 19:32 | IPNPDOC ---
Text Note Date of Service The patient was seen on 02/03/19. NOTE Subjective: No any acute events overnight. Patient has tachycardia when she walk. Patient stated that she has appetite and she would like to eat regular food Objective: GENERAL APPEARANCE: NAD HEENT: normocephalic, atraumatic, mucous membranes moist and pink CARDIOVASCULAR: No murmurs, rubs or gallops, tachycardia at rate 130 LUNGS: clear to auscultation bilaterally on room air ABDOMEN: The abdomen is soft, nontender MUSCULOSKELETAL: Range of motion intact in all 4 extremities. There is no lower extremity edema NEUROLOGICAL: Cranial nerves II-12 are grossly intact. Speech is not dysarthric PSYCHIATRIC: Alert and oriented to person, place and time, able to understand and follow commands PROCEDURE INFORMATION: Assessment and plan Patient is 33 years old female with past medical history of recurrent pancreatitis, hypertension, C. difficile colitis treated 2 weeks ago presented hospital with abdominal pain. Patient was diagnosed with acute recurrent live creatitis. Acute pancreatitis Resolved Patient has history of recurrent pancreatitis most likely autoimmune Lipase level was elevated 9967, amylase 209, LDH 252. Unlikely patient has common bile duct obstruction given normal bilirubin and negative right upper quadrant ultrasound Patient was afebrile on admission. patient is nontoxic, afebrile, doesn't have leukocytosis. Continue supportive treatment with IV fluid Pain management Regular diet Metabolic acidosis Resolved Thrombocytopenia Unknown etiology for now Most likely secondary to hepatic steatosis. Also patient has a history of al cohol abuse Hepatic steatosis Follow-up with thread grinder in the outpatient settings History of alcohol abuse Serum ethanol is within normal limits. No signs or symptoms of alcohol withdrawal Tachycardia Most likely secondary to pain and anxiety EKG did not show any ischemic changes Patient denies any chest pain Metoprolol 12.5 twice a day Hypertension Continue home medication VS,Fishbone, I+O VS, Fishbone, I+O Laboratory Tests 02/03/19 05:44 Vital Signs Date Time Temp Pulse Resp B/P (MAP) Pulse Ox O2 Delivery O2 Flow Rate FiO2 02/03/19 18:00 98.8 111 18 137/98 (111) 99 Room Air I&O- Last 24 Hours up to 6 AM 02/03/19 06:00 Intake Total 1100 ml Output Total 400 ml Balance 700 ml GENTRY THOMPSON DO Feb 03, 2019 19:32
[2019-02-03] MEDS ORDERED: LORazepam 2 MG TAB PO PRN (19:45)
[2019-02-03] MEDS: METOPROLOL TART 12.5 MG PER 1/2 TAB PO SCH (20:45)
[2019-02-03] MEDS: FOLIC ACID 1 MG TAB PO SCH (20:46)
[2019-02-03] MEDS: MULTIVITAMINS/MINERALS THERAP 1 TAB PO SCH (20:47)
[2019-02-03] MEDS ORDERED: ACETAMINOPHEN 500 MG TAB PO PRN (21:15)
[2019-02-03 22:00] VITALS: BP_SYST 117; BP_SYST 137; BP_DIAS 82; BP_DIAS 98
[2019-02-04] MEDS: KETOROLAC TROMETHAMINE 10 MG TAB PO PRN ×2 (01:35→11:02)
[2019-02-04 02:00] VITALS: BP 130/88
[2019-02-04 06:00] VITALS: BP 132/92
[2019-02-04 06:17] LABS: HEMATOCRIT 37.4 % (36.0-47.0); HEMOGLOBIN 12.6 g/dl (12.0-15.5); MEAN CORPUSCULAR HEMOGLOBIN 31.3 pg (27.0-33.0); MEAN CORPUSCULAR HGB CONC 33.7 g/dl (32.0-36.5); RED BLOOD COUNT 4.02 10^6/uL (4.00-5.40)
[2019-02-04 06:18] LABS: PLATELET COUNT, AUTOMATED 70 10^3/uL (150-450)
[2019-02-04] MEDS: MORPHINE 4 MG/ML 1ML VIAL/SYRINGE (J2270) IV PRN ×2 (06:40→12:09)
[2019-02-04 06:45] LABS: ALBUMIN 3.4 GM/DL (3.2-5.2); ALT/SGPT 34 U/L (12-78); BILIRUBIN,TOTAL 0.7 MG/DL (0.2-1.0); BLOOD UREA NITROGEN 5 MG/DL (7-18); CALCIUM LEVEL 9.3 MG/DL (8.5-10.1); CARBON DIOXIDE LEVEL 36 MEQ/L (21-32); CHLORIDE LEVEL 96 MEQ/L (98-107); CREATININE FOR GFR 0.57 MG/DL (0.55-1.30); GLOMERULAR FILTRATION RATE > 60.0 (>60); GLUCOSE, FASTING 111 MG/DL (70-100); MAGNESIUM LEVEL 1.8 MG/DL (1.8-2.4); POTASSIUM SERUM 3.4 MEQ/L (3.5-5.1); SODIUM LEVEL 135 MEQ/L (136-145)
[2019-02-04] MEDS: hydroCHLOROthiazide 12.5 MG CAPSULE PO SCH (08:20)
[2019-02-04] MEDS: FOLIC ACID 1 MG TAB PO SCH (08:20)
[2019-02-04] MEDS: MULTIVITAMINS/MINERALS THERAP 1 TAB PO SCH (08:20)
[2019-02-04] MEDS: THIAMINE 100 MG TAB PO SCH (08:21)
[2019-02-04 08:22] VITALS: BP 133/96
[2019-02-04] MEDS: METOPROLOL TART 12.5 MG PER 1/2 TAB PO SCH (08:22)
[2019-02-04] MEDS: LISINOPRIL 20 MG TAB PO SCH (08:22)
[2019-02-04 10:00] VITALS: BP 130/82
[2019-02-04] MEDS ORDERED: METO1TAB87 PO (12:34)
[2019-02-04] MEDS ORDERED: KETO10TAB PO (12:34)
[2019-02-04 14:00] VITALS: BP 135/92
--- NOTE | 2019-02-04 19:37 | DS.PDOC ---
Discharge Summary General Date of Admission Feb 01, 2019 at 20:20 Date of Discharge 02/05/19 Discharge Summary PROCEDURES PERFORMED DURING STAY: None ADMITTING DIAGNOSES: Acute pancreatitis Metabolic acidosis Thrombocytopenia Hepatic steatosis History of alcohol abuse Tachycardia Hypertension DISCHARGE DIAGNOSES: Acute pancreatitis Metabolic acidosis Thrombocytopenia Hepatic steatosis History of alcohol abuse Tachycardia Hypertension COMPLICATIONS/CHIEF COMPLAINT: Acute Pancreatitis. HISTORY OF PRESENT ILLNESS: This is a 33-year-old female who presents with complaints of 8/10 in severity, aching abdominal and back pain that began yesterday. She came to the ED today because the pain became worse. Associated symptoms include nausea, non-bloody emesis, soft stools, and chills. 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 Per discussion with the provider she was seen at [facility] a few days ago and transferred to [facility] where she was treated for C. difficile colitis. Today her lipase was greate r than 1000; she received morphine for the abdominal pain. HOSPITAL COURSE: During hospital stay the following issue addressed Acute pancreatitis Resolved Patient has history of recurrent pancreatitis most likely autoimmune Lipase level was elevated 9967, amylase 209, LDH 252. Unlikely patient has common bile duct obstruction given normal bilirubin and negative right upper quadrant ultrasound Patient was afebrile on admission. patient is nontoxic, afebrile, doesn't have leukocytosis. supportive treatment with IV fluid Pain management Regular diet Metabolic acidosis Resolved Thrombocytopenia Unknown etiology for now Most likely secondary to hepatic steatosis. Also patient has a history of alcohol abuse Hepatic steatosis Follow-up with multicultural manager in the outpatient settings History of alcohol abuse Serum ethanol is within normal limits. No signs or symptoms of alcohol withdrawal Tachycardia Most likely secondary to pain and anxiety EKG did not show any ischemic changes Patient denies any chest pain Metoprolol 12.5 twice a day Hypertension Continue home medication DISCHARGE MEDICATIONS: Please see below. ALLERGIES: Please see below. PHYSICAL EXAMINATION ON DISCHARGE: VITAL SIGNS: Please see below. GENERAL APPEARANCE: NAD HEENT: normocephalic, atraumatic, mucous membranes moist and pink CARDIOVASCULAR: No murmurs, rubs or gallops LUNGS: clear to auscultation bilaterally on room air ABDOMEN: The abdomen is soft, nontender MUSCULOSKELETAL: Range of motion intact in all 4 extremities. There is no lower extremity edema NEUROLOGICAL: Cranial nerves II-12 are grossly intact. Speech is not dysarthric PSYCHIATRIC: Alert and oriented to person, place and time, able to understand and follow commands PROCEDURE INFORMATION: LABORATORY DATA: Please see below. IMAGING: [facility] NAME: HILDA SIMEON DATE OF : 1985 BUSINESS NUMBER: [id number] AGE: 33 SEX: F REPORT #: [id number] ROOM: [facility] TECHNOLOGIST: JANKI DOCTOR: ALESSANDRA WORKMAN MD Ordered for Date&Time: 02/01/192019 cc: [~ rep ct ivnm] Service Date&Time: 02/01/192055 This report is in Signed status. Interpretation performed by [facility]. Thank you for having your radiology procedures performed at [facility] RADIOLOGY REPORT Date&Time printed: [~ rep prt dt last] [~ rep prt tm last] Page 2 of 2 [place] [id number] RADIOLOGY REPORT This report is in Signed status. Interpretation performed by [facility]. Thank you for having your radiology procedures performed at [facility] RADIOLOGY REPORT Date&Time printed: [~ rep prt dt last] [~ rep prt tm last] Page 1 of 2 PROCEDURE INFORMATION: Exam: US Abdomen Limited, Right Upper Quadrant Exam date and time: 02/01/2019 8:56 PM Clinical history: 33 years old, female; Abdominal pain; Epigastric; Prior surgery; Surgery date: 6+ months; Surgery type: Gallbladder removal; Additional info: Pancreatitis TECHNIQUE: Imaging protocol: Real-time ultrasound of the abdomen with image documentation. Examination was focused on the right upper quadrant. COMPARISON: CT ABD/PEL W/IV ORAL CONTRAS 10/01/2018 12:35 PM FINDINGS: Liver: Hepatic steatosis. Liver mild enlargement. Gallbladder: Cholecystectomy. Common bile duct: Normal. No stones. No dilation. Pancreas: Pancreas obscured by bowel gas but grossly unremarkable. Right kidney: Unremarkable 11 cm right kidney. 1 cm right renal cyst. IMPRESSION: 1. Cholecystectomy. 2. Hepatic steatosis. 3. Pancreas obscured by bowel gas but grossly unremarkable. COMMENT: Consistent with the [employer]'s Incidental Findings Committee Report (J Am Chantal Radiol 2010): Unless the patient's specific circumstances suggest otherwise, any liver lesion 0.5 cm or less, any cystic kidney lesion less than 1.0 cm, and/or any adrenal lesion 1.0 cm or less not otherwise characterized in this report as possessing suspicious or indeterminate imaging features is/are highly likely to be benign and do not require follow-up imaging or biopsy. Electronically signed by: Kelsie Van On 02/01/2019 21:33:37 PM DD: KELSIE VAN MD 02/01/192055 DT: JOSEPH 02/01/192132 DS: POLY 02/01/192132 [~ rep ct labl] PROGNOSIS: Favorable ACTIVITY: As tolerated DIET: Cardiac DISCHARGE PLAN: Home DISPOSITION: 01 Home, Self-Care. DISCHARGE INSTRUCTIONS: Avoid alcohol ITEMS TO FOLLOWUP ON ON OUTPATIENT: Follow-up with multicultural manager in 2 weeks DISCHARGE CONDITION: Stable TIME SPENT ON DISCHARGE: Greater than 20 minutes. Vital Signs/I&Os Vital Signs Date Time Temp Pulse Resp B/P (MAP) Pulse Ox O2 Delivery O2 Flow Rate FiO2 02/04/19 14:00 99.1 103 20 135/92 (106) 100 Room Air I&O- Last 24 Hours up to 6 AM 02/04/19 06:00 Intake Total 3970 ml Output Total 200 ml Balance 3770 ml Laboratory Data Labs 24H Laboratory Tests 2 02/04/19 05:59: Nucleated Red Blood Cells % (auto) 0.0, Immature Platelet Fraction 12.6H, Anion Gap 3L, Glomerular Filtration Rate > 60.0, Calcium Level 9.3#, Magnesium Level 1.8, Total Bilirubin 0.7, Aspartate Amino Transf (AST/SGOT) 55H, Alanine Aminotransferase (ALT/SGPT) 34, Alkaline Phosphatase 74, Total Protein 7.0#, Albumin 3.4#, Albumin/Globulin Ratio 0.94L CBC/BMP Laboratory Tests 02/04/19 05:59 Microbiology Microbiology 02/01/19 Blood Culture - Preliminary, Resulted No Growth after 48 hours. All Specime... Discharge Medications Scheduled Lisinopril/Hydrochlorothiazide (Lisinopril-Hctz 20-12.5 mg Tab) 1 Each Tablet, 1 TAB PO DAILY, (Reported) Metoprolol Tartrate (Metoprolol Tartrate) 25 Mg Tablet, 12.5 MG PO BID Scheduled PRN Acetaminophen (Acetaminophen) 500 Mg Tablet, 1,000 MG PO BID PRN for PAIN / FEVER, (Reported) Ketorolac Tromethamine (Ketorolac Tromethamine) 10 Mg Tablet, 10 MG PO Q6HP PRN for PAIN Trazodone HCl (Trazodone HCl) 100 Mg Tablet, 100 MG PO QHS PRN for SLEEP, (Reported) Allergies Coded Allergies: Penicillins (Verified Allergy, Unknown, SHOCK, 02/01/19) vancomycin (Verified Allergy, Unknown, RASH, 08/06/18) GENTRY THOMPSON DO Feb 04, 2019 19:37
== END 2019-02-04 13:48 | disposition home or self-care (01) | DRG 440 ==
LOC: M ED 17:24 → M ED INP 20:20 → M MSPAV 22:15
PROVIDERS: ADMIT Internal Medicine; ATTEND Internal Medicine
DX: K85.90 Acute pancreatitis without necrosis or infection, unspecified (principal); E78.2 Mixed hyperlipidemia; D69.6 Thrombocytopenia, unspecified; I10 Essential (primary) hypertension; K75.81 Nonalcoholic steatohepatitis (NASH); Z88.0 Allergy status to penicillin; Z79.899 Other long term (current) drug therapy; F10.10 Alcohol abuse, uncomplicated; R00.0 Tachycardia, unspecified

== ENCOUNTER 2019-05-01 20:05 | Inpatient (IN) | payer OTHER ==
[~2019-05-01] VITALS: Ht 170.2 cm; Wt 56.6 kg
[~2019-05-01 20:05] MED LIST changes: +ACET500T15 PO; +APAP325T4 PO; +KETO10TAB PO; +METO1TAB87 PO; -TRAZ10TA PO; +TRAZ1TAB12 PO
[2019-05-01] MEDS ORDERED: NS 1,000 ML IV ONE ×2 (20:45→22:15)
[2019-05-01] MEDS ORDERED: ONDANSETRON 4MG/2ML VIAL (J2405) IV ONE (21:00)
[2019-05-01] MEDS ORDERED: KETOROLAC 30 MG/ML VIAL (J1885) IV ONE (21:00)
[2019-05-01] MEDS ORDERED: PROMETHAZINE INJ 25 MG/ML VIAL (J2550) IV ONE (21:00)
[2019-05-01] MEDS ORDERED: MORPHINE 4 MG/ML 1ML VIAL/SYRINGE (J2270) IV ONE (21:00)
[2019-05-01 21:07] LABS: HEMATOCRIT 50.4 % (36.0-47.0); MEAN CORPUSCULAR HEMOGLOBIN 31.6 pg (27.0-33.0); MEAN CORPUSCULAR HGB CONC 31.7 g/dl (32.0-36.5); MEAN CORPUSCULAR VOLUME 99.6 fl (80.0-96.0); RED BLOOD COUNT 5.06 10^6/uL (4.00-5.40); WHITE BLOOD COUNT 18.7 10^3/uL (4.0-10.0)
[2019-05-01 21:19] LABS: PLATELET COUNT, AUTOMATED 89 10^3/uL (150-450)
--- NOTE | 2019-05-01 21:20 | REPVR ---
PROCEDURE INFORMATION: Exam: CT Abdomen And Pelvis Without Contrast Exam date and time: 05/01/2019 8:59 PM Age: 34 years old Clinical indication: Abdominal pain; Localized; Left upper quadrant (luq); Additional info: Luq pain TECHNIQUE: Imaging protocol: Computed tomography of the abdomen and pelvis without contrast. Axial, coronal and sagittal reformatted images were created and reviewed. Radiation optimization: All CT scans at this facility use at least one of these dose optimization techniques: automated exposure control; mA and/or kV adjustment per patient size (includes targeted exams where dose is matched to clinical indication); or iterative reconstruction. COMPARISON: CT ABD/PEL W/IV ORAL CONTRAS 10/01/2018 12:35 PM FINDINGS: Mediastinum: Small hiatal hernia. Liver: Mild hepatomegaly. Diffuse hepatic steatosis. Gallbladder and bile ducts: Status post cholecystectomy. No biliary ductal dilatation. Pancreas: Questionable subtle peripancreatic edema. Spleen: Unremarkable. Adrenals: Unremarkable. Kidneys and ureters: No mass. No radiodense calculi. No hydronephrosis. Stomach and bowel: Suspected mild wall thickening of the proximal small bowel loops in the left upper quadrant/mid abdomen, similar to prior. Submucosal fat deposition in the right colon. No obstruction. No pneumatosis. Appendix: Normal. Intraperitoneal space: No free fluid. No organized fluid collection. No free air. Vasculature: Unremarkable. No aneurysm. Lymph nodes: No pathologically enlarged lymph nodes. Bladder: Unremarkable. Reproductive: Unremarkable. Bones/joints: No acute osseous abnormality. Soft tissues: Unremarkable. IMPRESSION: 1. Limited noncontrast examination. 2. Questionable subtle peripancreatic edema. Correlate with serum amylase and lipase levels to exclude acute pancreatitis. 3. Mild wall thickening of the proximal small bowel loops in the left upper quadrant/mid abdomen, similar to prior. Mild nonspecific enteritis could produce this appearance. 4. Additional findings, as above. Electronically signed by: Ari Eden On 05/01/2019 21:20:41 PM
[2019-05-01 21:23] LABS: LYMPHOCYTES 7 % (16-44); NEUTROPHILS 91 % (28-66)
[2019-05-01 21:24] LABS: PLATELET ESTIMATE DECREASED (NORMAL)
[2019-05-01 21:44] LABS: ALBUMIN 4.9 GM/DL (3.2-5.2); ALT/SGPT 75 U/L (12-78); BILIRUBIN,DIRECT 0.2 MG/DL (0.0-0.2); BILIRUBIN,TOTAL 0.9 MG/DL (0.2-1.0); BLOOD UREA NITROGEN 22 MG/DL (7-18); CALCIUM LEVEL 8.6 MG/DL (8.5-10.1); CARBON DIOXIDE LEVEL 8 MEQ/L (21-32); CHLORIDE LEVEL 98 MEQ/L (98-107); CK-MB VALUE MASS 2.4 NG/ML (<3.6); CPK CREATINE PHOSPHOKINASE 154 U/L (26-192); CREATININE FOR GFR 1.35 MG/DL (0.55-1.30); ETHYL ALCOHOL (ETHANOL) < 0.003 % (0.000-0.010); GLOMERULAR FILTRATION RATE 57.2 (>60); GLUCOSE, FASTING 199 MG/DL (70-100); LIPASE 5645 U/L (73-393); MB/CK RELATIVE INDEX 1.56 (< OR =4); POTASSIUM SERUM 5.9 MEQ/L (3.5-5.1); SODIUM LEVEL 136 MEQ/L (136-145); TOTAL PROTEIN 9.8 GM/DL (6.4-8.2); TROPONIN I 0.04 NG/ML (< 0.10)
[2019-05-01] MEDS: NS 1,000 ML IV SCH (23:30)
[2019-05-02] VITALS (11 sets, daily range): BP systolic 121–180; BP diastolic 77–115
[2019-05-02] MEDS: MORPHINE 4 MG/ML 1ML VIAL/SYRINGE (J2270) IV PRN ×6 (01:14→22:05)
[2019-05-02] MEDS: ONDANSETRON 4MG/2ML VIAL (J2405) IV PRN (01:14)
[2019-05-02] MEDS: NS 1,000 ML IV SCH ×4 (01:15→21:11)
[2019-05-02] MEDS ORDERED: LABETALOL HCL 100 MG/20 ML VIAL IV ONE (04:15)
[2019-05-02] MEDS: ACETAMINOPHEN TAB 650MG DOSE (2X325MG) PO PRN ×2 (04:54→10:44)
--- NOTE | 2019-05-02 04:59 | HPEPDOC ---
General Date of Admission May 01, 2019 at 22:45 Date of Service: May 01, 2019 Attending Physician: ELENA DE LA FUENTE MD Chief Complaint The patient is a 34-year-old female admitted with a reason for visit of Acute Pancreatitis. Source: Patient Exam Limitations: Clinical conditions (abdominal pain) Timing/Duration: Day(s) (2 days of abdominal pain with poor PO) Severity: Moderate, Severe Associated Symptoms: Nausea, Other (abdominal pain) History of Present Illness 34 yo W with alcohol use disorder and prior history of likely alcohol induced pancreatitis recently who presented to the ED with complaints of 10/10 aching epigastric abdominal and back pain that began yesterday with associated nausea and an episode of non-bloody emesis in the setting of recent persistent excessive alcohol intake. In the ED, she was hypertensive to 157/102, tachycardic to 145, afebrile and in saturating well on room air but visibly dehydrated and in significant distress from 10/10 epigastric pain that was radiating to the back. Her pain improved after toradol and morphine 4mg IV. She reported no fever, chills, but did have poor PO with excessive alcohol until yesterday when she started to have nausea, emesis and significant pain. In the ED, her work up was notable for a leukocytosis to 18.7, hemoconcentration with hgb 16, hct 50.4, thrombocytopenia to 89, lipase 5645, initial lactate to 3.7 that resolved after 2L NS and Cr 1.35. Troponin was negative and EKG had no acute ST changes. She had a CT A/P that showed peripancreatic edema and was admitted to medicine for acute pancreatitis. Home Medications Scheduled Lisinopril/Hydrochlorothiazide (Lisinopril-Hctz 20-12.5 mg Tab) 1 Each Tablet, 1 TAB PO DAILY, (Reported) Scheduled PRN Acetaminophen (Acetaminophen) 500 Mg Tablet, 500 MG PO Q4H PRN for PAIN / FEVER, (Reported) Trazodone HCl (Trazodone HCl) 100 Mg Tablet, 100 MG PO QHS PRN for SLEEP, (Reported) Allergies Coded Allergies: Penicillins (Verified Allergy, Unknown, SHOCK, 02/01/19) vancomycin (Verified Allergy, Unknown, RASH, 08/06/18) Past Medical History Medical History Chronic hypertension. History of recurrent pancreatitis since childhood? Alcohol use disorder Surgical History Status post 3 Status post small bowel resection for management of SBO secondary to adhesions Status post D&C. Status post tubal ligation Status post breast augmentation Family History Significant Family History: No pertinent family hx Father had pancreatitis Social History * Smoker: former Smoker Alcohol: heavy Drugs: denies Recent Travel/Sick Contacts: Denies: Recent travel, Recent sick contacts Former smoker Current excessive alcohol consumption Denies history of recreational drug use Lives alone with a roommate, / from spouse who is active A-FIB/CHADSVASC A-FIB History Current/History of A-Fib/PAF?: No Current PO Anticoag Therapy: No Age/Risk Factor Scoring CHADSVASC: CHADSVASC Response (Comments) Value Age Risk Factor Age < 65 years old 0 Gender Risk Factor Female 1 Hx of CHF No 0 Hx of HTN Yes 1 Hx of Stroke/TIA/or VTE No 0 Hx of Diabetes No 0 Hx of Vascular Disease No 0 Total 2 Treatment Treatment ordered: NONE Reason Anticoagulant not given: Not indicated/[id number] Review of Systems Constitutional: Denies: Chills, Fever, Night Sweats Eyes: Denies: Pain, Vision change ENT: Denies: Head Aches, Ear Pain, Dysphagia Skin: Denies: Rash, Lesions, Breakdown Pulmonary: Denies: Dyspnea, Cough Cardiovascular: Denies: Chest Pain, Palpitations, Orthopnea, Paroxysmal Noc. Dyspnea, Lt Headedness Gastrointestinal: Reports: Nausea, Vomiting, Abdominal Pain; Denies: Diarrhea, Constipation, Melena, Hematochezia Genitourinary: Denies: Dysuria, Frequency, Incontinence, Retention Hematologic: Denies: Bruising, Bleeding Excessively Endocrine: Denies: Polydipsia, Polyphagia, Polyuria, Heat Intolerance, Cold Intolerance, Other Endocrine Sx Musculoskeletal: Reports: Back Pain; Denies: Neck Pain, Joint Pain, Muscle Pain, Spasms Neurological: Denies: Weakness, Numbness, Change in speech, Confusion Psych: Reports: Mood Normal, Depression (sometimes); Denies: Memory Issues Physical Examination General Exam: Positive: Alert, Cooperative, Mild Distress, Other (thin, disheveled, ill appearing) Eye Exam: Positive: PERRLA, Conjunctiva & lids normal, EOMI; Negative: Sclera icteric ENT Exam: Positive: Atraumatic, Pharynx Normal; Negative: Mucous membr. moist/pink (dry MM) Neck Exam: Positive: Supple; Negative: JVD, thyromegaly Chest Exam: Positive: Clear to auscultation, Normal air movement Heart Exam: Positive: Rate Normal, Regular Rhythm, Normal S1, Normal S2; Negative: Murmurs, Rubs Telemetry: Positive: No significant arrhythmia Abdomen Exam: Positive: Normal bowel sounds, Soft, Tenderness (tender epigast rum on palpation); Negative: Mass Extremity Exam: Positive: Normal pulses; Negative: Clubbing, Cyanosis, Edema Skin Exam: Positive: Nl turgor and temperature; Negative: Breakdown, Lesion Neuro Exam: Positive: Normal Speech, Strength at 5/5 X4 ext, Cranial Nerves 3- 12 NL Psych Exam: Positive: Mental status NL, Mood NL, Oriented x 3 Vital Signs Vital Signs Date Time Temp Pulse Resp B/P (MAP) Pulse Ox O2 Delivery O2 Flow Rate FiO2 05/02/19 01:30 20 05/02/19 01:00 133 178/115 05/02/19 01:00 98.5 99 Room Air Laboratory Data Labs 24H Laboratory Tests 2 05/01/19 20:55: Nucleated Red Blood Cells % (auto) 0.0, Neutrophils 91H, Band Neutrophils 2, Lymphocytes (Manual) 7L, Platelet Estimate DECREASED, Immature Platelet Fraction 8.8, Anion Gap 30H, Glomerular Filtration Rate 57.2L, Lactic Acid Level 3.7*H, Calcium Level 8.6, Total Bilirubin 0.9, Direct Bilirubin 0.2, Aspartate Amino Transf (AST/SGOT) 120H, Alanine Aminotransferase (ALT/SGPT) 75, Alkaline Phosphatase 92, Total Creatine Kinase 154, Creatine Kinase MB 2.4, Creatine Kinase MB Relative Index 1.56, Troponin I 0.04, Total Protein 9.8H, Albumin 4.9, Albumin/Globulin Ratio 1.00, Lipase 5645H, Ethyl Alcohol Level < 0.003 05/02/19 01:26: Lactic Acid Followup at 4 Hours 1.8 CBC/BMP Laboratory Tests 05/01/19 20:55 Assessment/Plan 34 yo W with alcohol use disorder and prior history of likely alcohol induced pancreatitis recently who presented to the ED with complaints of 10/10 aching epigastric abdominal and back pain that began yesterday with associated nausea and an episode of non-bloody emesis in the setting of recent persistent excessive alcohol intake and is admitted for acute pancreatitis. Acute pancreatitis: Likely alcohol vs. autoimmune based on having given prior history of episodic pancreatitis since she was young, unlikely gallstone panc given she is s/p adela -Diagnosis per abdominal pain, elevated lipase and peripancreatic edema on im aging -NPO status -s/p 2L NS in the ED, continue @ 200c/hr -IV morphine 4Q4PRN for severe pain -Zofran PRN Dehydration: clinically dry, reporting poor PO with recent alcohol, with sinus tachycardia -aggressive hydration HTN: -restart home meds lisinopril/HCTZ when she can tolerate, for now gave IV labetalol Anion gap metabolic acidosis with initial lactic acidosis that has resolved since she got fluids. -Possibly 2/2 starvation ketoacidosis and dehydration -follow up AM BMP Thrombocytopenia: chronic -2/2 alcohol use disorder and myelosuppressive effects of alcohol. Hepatic steatosis and transaminitis -follow up LFTs Alcohol use disorder: -CIWA protocol with telemetry / seizure precautions / Thiamine 100mg daily, Folic acid 1mg daily DVT prophylaxis with SCDs. Disposition pending clinical course Plan / VTE VTE Prophylaxis Ordered?: Yes ELENA DE LA FUENTE MD May 02, 2019 04:59
[2019-05-02 05:16] LABS: HEMATOCRIT 40.4 % (36.0-47.0); MEAN CORPUSCULAR HEMOGLOBIN 31.7 pg (27.0-33.0); MEAN CORPUSCULAR HGB CONC 32.2 g/dl (32.0-36.5); MEAN CORPUSCULAR VOLUME 98.5 fl (80.0-96.0); WHITE BLOOD COUNT 13.4 10^3/uL (4.0-10.0)
[2019-05-02 05:28] LABS: PLATELET COUNT, AUTOMATED 67 10^3/uL (150-450)
[2019-05-02 05:41] LABS: ALBUMIN 3.9 GM/DL (3.2-5.2); ALT/SGPT 54 U/L (12-78); BILIRUBIN,TOTAL 0.6 MG/DL (0.2-1.0); BLOOD UREA NITROGEN 13 MG/DL (7-18); CALCIUM LEVEL 7.1 MG/DL (8.5-10.1); CARBON DIOXIDE LEVEL 15 MEQ/L (21-32); CHLORIDE LEVEL 108 MEQ/L (98-107); CREATININE FOR GFR 1.02 MG/DL (0.55-1.30); GLOMERULAR FILTRATION RATE > 60.0 (>60); GLUCOSE, FASTING 153 MG/DL (70-100); MAGNESIUM LEVEL 2.2 MG/DL (1.8-2.4); POTASSIUM SERUM 5.1 MEQ/L (3.5-5.1); SODIUM LEVEL 138 MEQ/L (136-145); TOTAL PROTEIN 8.6 GM/DL (6.4-8.2)
--- NOTE | 2019-05-02 05:43 | ECGEPIP ---
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
[2019-05-02] MEDS ORDERED: HEPARIN SOD (PORCINE) 5000 UNITS/ML VIAL (J1644 PER 1000UNITS) SC SCH (06:00)
[2019-05-02 08:24] LABS: INR 1.16; PROTHROMBIN TIME 14.5 SECONDS (11.8-14.0)
[2019-05-02] MEDS: FOLIC ACID 1 MG TAB PO SCH (08:30)
[2019-05-02] MEDS: MULTIVITAMINS/MINERALS THERAP 1 TAB PO SCH (08:31)
[2019-05-02] MEDS: THIAMINE 100 MG TAB PO SCH ×2 (08:31→21:12)
--- NOTE | 2019-05-02 08:56 | IPNPDOC ---
Text Note Date of Service The patient was seen on 05/02/19. NOTE S: Patient seen and examined at bedside. No acute overnight events reported. Still complains of abdominal pain, but feels it has much improved. Denies any other medical complaints. O: General: NAD, lying comfortably in bed HEENT: NC/AT, EOMI, PERRL Lungs: CTA B/L Heart: +S1S2, RRR Abd: soft, tender, hypoactive BS Ext: no edema A/P: 34 yo W with alcohol use disorder and prior history of likely alcohol induced pancreatitis recently who presented to the ED with complaints of 10/10 aching epigastric abdominal and back pain that began yesterday with associated nausea and an episode of non-bloody emesis in the setting of recent persistent excessive alcohol intake and is admitted for acute pancreatitis. #Acute pancreatitis - Likely alcohol vs. autoimmune based on having given prior history of episodic pancreatitis since she was young, unlikely gallstone panc given she is s/p choly - CT A/P completed - peripancreatic edema on imaging -NPO , IVF -IV morphine 4Q4PRN for severe pain -Zofran PRN #Dehydration - appears resolved - continue with aggressive hydration #HTN -restart home meds lisinopril/HCTZ when she can tolerate, for now gave IV labetalol #Anion gap metabolic acidosis with initial lactic acidosis that has resolved since she got fluids. -Possibly 2/2 starvation ketoacidosis and dehydration -follow up AM BMP #Thrombocytopenia - chronic -2/2 alcohol use disorder and myelosuppressive effects of alcohol. #Hepatic steatosis and transaminitis -follow up LFTs #Alcohol use disorder: -CIWA protocol with telemetry / seizure precautions / Thiamine 100mg daily, Folic acid 1mg daily #DVT prophylaxis with SCDs. VS,Fishbone, I+O VS, Fishbone, I+O Laboratory Tests 05/01/19 20:55 05/02/19 04:44 Vital Signs Date Time Temp Pulse Resp B/P (MAP) Pulse Ox O2 Delivery O2 Flow Rate FiO2 05/02/19 08:31 160/101 05/02/19 08:00 97.7 103 20 100 Room Air I&O- Last 24 Hours up to 6 AM 05/02/19 06:00 Intake Total 2300 ml Output Total 200 ml Balance 2100 ml CHI SARMIENTO MD May 02, 2019 08:56
[2019-05-02] MEDS ORDERED: lisinopriL 20 MG TAB PO ONE (09:00)
[2019-05-02] MEDS ORDERED: INFLUENZA QUADRIVALENT PF VACCINE 0.5ML SYRINGE (90686) IM ONE (09:00)
[2019-05-02] MEDS ORDERED: hydroCHLOROthiazide 12.5 MG CAPSULE PO ONE (09:00)
[2019-05-02 09:26] LABS: AMPHETAMINES LEVEL URINE NEGATIVE (NEGATIVE); BARBITURATES URINE NEGATIVE (NEGATIVE); BENZODIAZEPINES URINE NEGATIVE (NEGATIVE); CANNABINOIDS URINE NEGATIVE (NEGATIVE); COCAINE METABOLITE URINE NEGATIVE (NEGATIVE); METHADONE URINE NEGATIVE (NEGATIVE); OPIATES URINE POSITIVE (NEGATIVE); PHENCYCLIDINE URINE NEGATIVE (NEGATIVE)
[2019-05-02] MEDS: IBUPROFEN 600 MG TAB PO PRN (10:44)
[2019-05-02] MEDS: PERCOCET 5MG/325MG TAB PO PRN (21:12)
[2019-05-03] VITALS (7 sets, daily range): BP systolic 127–178; BP diastolic 82–110
[2019-05-03] MEDS: NS 1,000 ML IV SCH ×2 (02:13→08:00)
[2019-05-03] MEDS: MORPHINE 4 MG/ML 1ML VIAL/SYRINGE (J2270) IV PRN ×2 (02:15→08:09)
[2019-05-03] MEDS: MULTIVITAMINS/MINERALS THERAP 1 TAB PO SCH (08:09)
[2019-05-03] MEDS: FOLIC ACID 1 MG TAB PO SCH (08:09)
[2019-05-03] MEDS: THIAMINE 100 MG TAB PO SCH ×2 (08:09→20:17)
[2019-05-03] MEDS: PERCOCET 5MG/325MG TAB PO PRN ×3 (10:27→21:40)
--- NOTE | 2019-05-03 12:59 | IPNPDOC ---
Text Note Date of Service The patient was seen on 05/03/19. NOTE Patient was examined bedside. She had no acute she states that her pain is well- controlled. She is willing to try regular diet today. O: General: NAD, no complaints HEENT: PERRL, Neck is supple Lungs: CTA B/L Heart: +S1S2, RRR, no murmur Abd: soft, tender, active bowel sounds Ext: no edema, no cyanosis A/P: 34 yo W with alcohol use disorder and prior history of likely alcohol induced pancreatitis recently who presented to the ED with complaints of 10/10 aching epigastric abdominal and back pain that began yesterday with associated nausea and an episode of non-bloody emesis in the setting of recent persistent excessive alcohol intake and is admitted for acute pancreatitis. #Acute pancreatitis - Likely alcohol vs. autoimmune based on having given prior history of episodic pancreatitis since she was young, unlikely gallstone panc given she is s/p choly -Resolving. Patient tolerated full liquid diet. Will transition to regular diet today. -Discontinue IV morphine -Zofran PRN #Dehydration -resolved, d/c fluids #HTN -Resume home meds #Anion gap metabolic acidosis with initial lactic acidosis that has resolved since she got fluids. -Resolved #Thrombocytopenia - chronic -2/2 alcohol use disorder and myelosuppressive effects of alcohol. #Hepatic steatosis and transaminitis -follow up LFTs: Improving #Alcohol use disorder: -CIWA protocol #DVT prophylaxis with SCDs. #Dispo Will likely D/C with G.I follow up tomorrow. VS,Fishbone, I+O VS, Fishbone, I+O Vital Signs Date Time Temp Pulse Resp B/P (MAP) Pulse Ox O2 Delivery O2 Flow Rate FiO2 05/03/19 12:00 97.4 88 18 146/87 (106) 100 05/03/19 08:00 Room Air I&O- Last 24 Hours up to 6 AM 05/03/19 06:00 Intake Total 2580 ml Output Total 2600 ml Balance -20 ml JOSEPH SHEN DO May 03, 2019 12:59
[2019-05-03] MEDS ORDERED: PERCOCET 5MG/325MG TAB PO ONE (14:00)
[2019-05-03] MEDS ORDERED: INFLUENZA QUADRIVALENT PF VACCINE 0.5ML SYRINGE (90686) IM ONE (16:00)
[2019-05-03] MEDS ORDERED: MORPHINE 2 MG/ML 1ML VIAL (J2270) IV ONE ×2 (20:00→22:45)
[2019-05-03] MEDS: LR 1,000 ML IV SCH (23:25)
[2019-05-04] VITALS (11 sets, daily range): BP systolic 138–190; BP diastolic 78–123
[2019-05-04] MEDS: NORCO, ANEXSIA 5/325MG TABLET (HYDROcodone/ACETAMINOPHEN) PO PRN ×2 (01:22→06:20)
[2019-05-04] MEDS: PERCOCET 5MG/325MG TAB PO PRN ×5 (03:40→20:52)
[2019-05-04] MEDS: LR 1,000 ML IV SCH (03:40)
[2019-05-04 05:30] LABS: HEMATOCRIT 32.4 % (36.0-47.0); HEMOGLOBIN 11.3 g/dl (12.0-15.5); MEAN CORPUSCULAR HEMOGLOBIN 31.7 pg (27.0-33.0); MEAN CORPUSCULAR HGB CONC 34.9 g/dl (32.0-36.5); RED BLOOD COUNT 3.56 10^6/uL (4.00-5.40); WHITE BLOOD COUNT 7.1 10^3/uL (4.0-10.0)
[2019-05-04 05:53] LABS: PLATELET COUNT, AUTOMATED 50 10^3/uL (150-450)
[2019-05-04 06:00] LABS: BLOOD UREA NITROGEN 3 MG/DL (7-18); CALCIUM LEVEL 7.8 MG/DL (8.5-10.1); CARBON DIOXIDE LEVEL 30 MEQ/L (21-32); CHLORIDE LEVEL 95 MEQ/L (98-107); CREATININE FOR GFR 0.35 MG/DL (0.55-1.30); GLOMERULAR FILTRATION RATE > 60.0 (>60); GLUCOSE, FASTING 101 MG/DL (70-100); MAGNESIUM LEVEL 1.9 MG/DL (1.8-2.4); POTASSIUM SERUM 2.7 MEQ/L (3.5-5.1); SODIUM LEVEL 132 MEQ/L (136-145)
[2019-05-04] MEDS ORDERED: POTASSIUM CHLORIDE 10% LIQ 20 MEQ/15 ML UDC PO ONE ×2 (06:15→07:00)
[2019-05-04] MEDS: THIAMINE 100 MG TAB PO SCH ×2 (08:35→19:43)
[2019-05-04] MEDS: MULTIVITAMINS/MINERALS THERAP 1 TAB PO SCH (08:35)
[2019-05-04] MEDS: FOLIC ACID 1 MG TAB PO SCH (08:36)
[2019-05-04] MEDS ORDERED: SLF 3 ML SYR IV PRN (12:30)
[2019-05-04] MEDS: SLF 3 ML SYR IV SCH ×2 (13:15→21:50)
--- NOTE | 2019-05-04 14:25 | IPNPDOC ---
Text Note Date of Service The patient was seen on 05/04/19. NOTE Subjective: Overnight patient had significant abdominal pain. She was made NPO and pain medication was restarted. The AM will attempt to restart a clear liquid diet. O: General: NAD, no complaints HEENT: PERRL, Neck is supple Lungs: CTA B/L Heart: +S1S2, RRR, no murmur Abd: soft, tender, active bowel sounds Ext: no edema, no cyanosis A/P: 34 yo W with alcohol use disorder and prior history of likely alcohol induced pancreatitis recently who presented to the ED with complaints of 10/10 aching epigastric abdominal and back pain that began yesterday with associated nausea and an episode of non-bloody emesis in the setting of recent persistent excessive alcohol intake and is admitted for acute pancreatitis. #Acute pancreatitis - Likely alcohol vs. autoimmune based on having given prior history of episodic pancreatitis since she was young, unlikely gallstone panc given she is s/p choly -Zofran PRN -She had increase abdominal pain, with the advancement of her diet yesterday. She was made NPO overnight, This AM she was started on a clear diet. Will advance slowly #Dehydration -resolved, d/c fluids #HTN -She was hypertensive over night. Most likely due to pain. Will continue to monitor -Resume home meds #Anion gap metabolic acidosis with initial lactic acidosis that has resolved since she got fluids. -Resolved #Thrombocytopenia - chronic -2/2 alcohol use disorder and myelosuppressive effects of alcohol. #Hepatic steatosis and transaminitis -follow up LFTs: Improving #Alcohol use disorder: -WA protocol #DVT prophylaxis with SCDs. #Dispo Pending toleration of an advanced diet. Will need GI follow up for chronic pancreatitis VS,Fishbone, I+O VS, Fishbone, I+O Laboratory Tests 05/04/19 05:00 Vital Signs Date Time Temp Pulse Resp B/P (MAP) Pulse Ox O2 Delivery O2 Flow Rate FiO2 05/04/19 06:50 18 05/04/19 04:30 154/96 (115) 05/04/19 04:00 97.4 98 100 Room Air I&O- Last 24 Hours up to 6 AM 05/04/19 06:00 Intake Total 800 ml Output Total 2400 ml Balance -1600 ml JORGEJOSEPH DEE DO May 04, 2019 08:26
[2019-05-04] MEDS ORDERED: NORCO, ANEXSIA 5/325MG TABLET (HYDROcodone/ACETAMINOPHEN) PO ONE (16:00)
[2019-05-04] MEDS: hydroCHLOROthiazide 12.5 MG CAPSULE PO SCH (17:10)
[2019-05-04 17:11] LABS: MAGNESIUM LEVEL 1.8 MG/DL (1.8-2.4); POTASSIUM SERUM 3.3 MEQ/L (3.5-5.1)
[2019-05-04] MEDS ORDERED: lisinopriL 20 MG TAB PO ONE (17:15)
[2019-05-04] MEDS: IBUPROFEN 600 MG TAB PO PRN (19:44)
[2019-05-04] MEDS: KCL 10MEQ/100ML SWI (KRUN) 10 MEQ in IV 1 EA IV SCH ×2 (19:45→20:51)
[2019-05-04] MEDS ORDERED: hydrALAZINE INJ 20 MG/ML VIAL IV ONE (21:15)
[2019-05-04] MEDS: ONDANSETRON 4MG/2ML VIAL (J2405) IV PRN (22:23)
[2019-05-04] MEDS: traZODone 100 MG TAB PO PRN (22:24)
[2019-05-05] VITALS (8 sets, daily range): BP systolic 139–176; BP diastolic 84–110
[2019-05-05] MEDS: PERCOCET 5MG/325MG TAB PO PRN ×2 (01:39→06:44)
[2019-05-05] MEDS: SLF 3 ML SYR IV SCH ×3 (05:15→22:00)
[2019-05-05 05:27] LABS: HEMATOCRIT 35.1 % (36.0-47.0); MEAN CORPUSCULAR HEMOGLOBIN 31.3 pg (27.0-33.0); MEAN CORPUSCULAR HGB CONC 34.2 g/dl (32.0-36.5); MEAN CORPUSCULAR VOLUME 91.6 fl (80.0-96.0); RED BLOOD COUNT 3.83 10^6/uL (4.00-5.40); WHITE BLOOD COUNT 3.8 10^3/uL (4.0-10.0)
[2019-05-05 05:28] LABS: PLATELET COUNT, AUTOMATED 92 10^3/uL (150-450)
[2019-05-05 05:52] LABS: BLOOD UREA NITROGEN 3 MG/DL (7-18); CALCIUM LEVEL 8.3 MG/DL (8.5-10.1); CARBON DIOXIDE LEVEL 33 MEQ/L (21-32); CHLORIDE LEVEL 92 MEQ/L (98-107); CREATININE FOR GFR 0.47 MG/DL (0.55-1.30); GLOMERULAR FILTRATION RATE > 60.0 (>60); GLUCOSE, FASTING 114 MG/DL (70-100); MAGNESIUM LEVEL 1.8 MG/DL (1.8-2.4); POTASSIUM SERUM 3.1 MEQ/L (3.5-5.1); SODIUM LEVEL 131 MEQ/L (136-145)
[2019-05-05] MEDS: ONDANSETRON 4MG/2ML VIAL (J2405) IV PRN ×2 (06:44→12:45)
[2019-05-05] MEDS ORDERED: POTASSIUM CHLORIDE 10 MEQ SR TABLET PO ONE (07:30)
[2019-05-05] MEDS ORDERED: MORPHINE 2 MG/ML 1ML VIAL (J2270) IV PRN (09:00)
[2019-05-05] MEDS: FOLIC ACID 1 MG TAB PO SCH (09:00)
[2019-05-05] MEDS: hydroCHLOROthiazide 12.5 MG CAPSULE PO SCH (09:00)
[2019-05-05] MEDS: lisinopriL 20 MG TAB PO SCH ×3 (09:00→20:59)
[2019-05-05] MEDS: MULTIVITAMINS/MINERALS THERAP 1 TAB PO SCH (09:00)
--- NOTE | 2019-05-05 09:04 | IPNPDOC ---
Text Note Date of Service The patient was seen on 05/05/19. NOTE S: Patient seen and examined at bedside. Still complains of abdominal pain, with nausea and one episode of vomiting as per patient. O: General: NAD, lying comfortably in bed HEENT: PERRL, NC/AT, EOMI Lungs: CTA B/L Heart: +S1S2, RRR, no murmur Abd: soft, tender, + BS in 4 q's Ext: no edema, lacerations on upper extremities she attributes to accidental quigley from cooking A/P: 34 yo W with alcohol use disorder and prior history of likely alcohol induced pancreatitis recently who presented to the ED with complaints of 10/10 aching epigastric abdominal and back pain with associated nausea and an episode of non- bloody emesis in the setting of recent persistent excessive alcohol intake and is admitted for acute pancreatitis. #Acute pancreatitis - still complains of pain - failed trial of PO intake - NPO/IVF, analgesic therapy - Likely alcohol vs. autoimmune based on having given prior history of episodic pancreatitis since she was young, unlikely gallstone panc given she is s/p choly #Dehydration - resolved - IVF resumed as per above NPO status #HTN - continue to follow clinically - continue with home meds - lisinopril #Anion gap metabolic acidosis with initial lactic acidosis - resolved s/p IVF #Thrombocytopenia - chronic -2/2 alcohol use disorder and myelosuppressive effects of alcohol #hyponatremia - hypochloremic - continue with IVF - NS #Hepatic steatosis and transaminitis -essentially resolved - repeat tomorrow am #Alcohol use disorder -CIWA protocol #DVT prophylaxis with SCDs. #Dispo - NPO/IVF, pain control VS,Fishbone, I+O VS, Fishbone, I+O Laboratory Tests 05/04/19 16:42 05/05/19 04:49 Vital Signs Date Time Temp Pulse Resp B/P (MAP) Pulse Ox O2 Delivery O2 Flow Rate FiO2 05/05/19 08:00 98.8 110 18 176/110 (132) 100 Room Air I&O- Last 24 Hours up to 6 AM0 05/05/19 06:00 Intake Total 1180 ml Output Total 3450 ml Balance -2270 ml CHI SARMIENTO MD May 05, 2019 09:04
[2019-05-05] MEDS ORDERED: NS 1,000 ML IV SCH (09:30)
[2019-05-05] MEDS: KCL 40MEQ in NS 1000ML 1,000 ML IV SCH ×2 (10:51→20:05)
[2019-05-05] MEDS: hydrALAZINE INJ 20 MG/ML VIAL IV SCH ×2 (12:13→18:07)
[2019-05-05] MEDS: OXAZEPAM 15 MG CAP PO SCH ×3 (12:13→23:18)
[2019-05-05] MEDS ORDERED: MORPHINE 2 MG/ML 1ML VIAL (J2270) IV ONE (14:00)
[2019-05-05 14:27] LABS: LIPASE 402 U/L (73-393)
[2019-05-05] MEDS: PROMETHAZINE INJ 25 MG/ML VIAL (J2550) IV PRN ×2 (16:51→23:19)
[2019-05-05] MEDS: MORPHINE 2 MG/ML 1ML VIAL (J2270) IV PRN ×2 (16:52→20:59)
[2019-05-05] MEDS ORDERED: LORazepam 2 MG/ML VIAL (J2060) IV PRN (18:00)
[2019-05-05] MEDS: traZODone 100 MG TAB PO PRN (20:59)
[2019-05-06] VITALS (44 sets, daily range): BP systolic 87–179; BP diastolic 50–110
[2019-05-06] MEDS: LORazepam 2 MG TAB PO PRN ×3 (00:39→14:42)
[2019-05-06] MEDS: hydrALAZINE INJ 20 MG/ML VIAL IV SCH ×3 (02:05→18:09)
[2019-05-06] MEDS ORDERED: LORazepam 2 MG/ML VIAL (J2060) IV PRN (02:45)
--- NOTE | 2019-05-06 04:11 | IPNPDOC ---
Text Note Date of Service The patient was seen on 05/06/19. NOTE Got several calls overnight about Ms. Bergman having consistently high CIWAs for hypertension, tachycardia, visual and auditory hallucinations and restlessness. Getting q1h PO ativan and q4 IV PRN ativan without much improvement in scores. At 2 am she got her scheduled dose of hydralazine with improvement in her hypertension but tachycardia persists and symptoms persist. Will transfer her to the ICU at this time and initiate a precedex gtt. VS,Fishbone, I+O VS, Fishbone, I+O Laboratory Tests 05/05/19 04:49 Vital Signs Date Time Temp Pulse Resp B/P (MAP) Pulse Ox O2 Delivery O2 Flow Rate FiO2 05/06/19 03:59 141 138/98 05/06/19 03:59 18 96 Room Air 05/06/19 02:58 97.4 I&O- Last 24 Hours up to 6 AM 05/06/19 06:00 Intake Total 900 ml Output Total 1250 ml Balance -350 ml ELENA DE LA FUENTE MD May 06, 2019 04:11
[2019-05-06] MEDS ORDERED: dexmedeTOMidine 200 MCG in IV 1 EA IV SCH (04:15)
[2019-05-06] MEDS: MORPHINE 2 MG/ML 1ML VIAL (J2270) IV PRN ×3 (04:55→23:17)
[2019-05-06 05:20] LABS: HEMATOCRIT 34.4 % (36.0-47.0); HEMOGLOBIN 11.2 g/dl (12.0-15.5); MEAN CORPUSCULAR HEMOGLOBIN 30.5 pg (27.0-33.0); MEAN CORPUSCULAR HGB CONC 32.6 g/dl (32.0-36.5); MEAN CORPUSCULAR VOLUME 93.7 fl (80.0-96.0); PLATELET COUNT, AUTOMATED 131 10^3/uL (150-450); RED BLOOD COUNT 3.67 10^6/uL (4.00-5.40)
[2019-05-06 05:33] LABS: ALBUMIN 3.5 GM/DL (3.2-5.2); ALT/SGPT 24 U/L (12-78); BILIRUBIN,TOTAL 0.5 MG/DL (0.2-1.0); BLOOD UREA NITROGEN 4 MG/DL (7-18); CARBON DIOXIDE LEVEL 28 MEQ/L (21-32); CHLORIDE LEVEL 102 MEQ/L (98-107); CREATININE FOR GFR 0.48 MG/DL (0.55-1.30); GLOMERULAR FILTRATION RATE > 60.0 (>60); GLUCOSE, FASTING 130 MG/DL (70-100); MAGNESIUM LEVEL 1.7 MG/DL (1.8-2.4); POTASSIUM SERUM 3.3 MEQ/L (3.5-5.1); SODIUM LEVEL 136 MEQ/L (136-145); TOTAL PROTEIN 7.3 GM/DL (6.4-8.2)
[2019-05-06] MEDS ORDERED: POTASSIUM CHLORIDE 10 MEQ SR TABLET PO ONE (06:00)
[2019-05-06] MEDS ORDERED: MAG SULF 1GM/100ML (MAG RUN) 1 GM in IV 1 EA IV ONE (06:00)
[2019-05-06] MEDS: OXAZEPAM 15 MG CAP PO SCH ×4 (06:00→18:08)
[2019-05-06] MEDS: SLF 3 ML SYR IV SCH ×3 (06:08→21:00)
[2019-05-06] MEDS: KCL 40MEQ in NS 1000ML 1,000 ML IV SCH ×2 (06:27→16:17)
[2019-05-06] MEDS: KCL 10MEQ/100ML SWI (KRUN) 10 MEQ in IV 1 EA IV SCH ×4 (06:27→10:08)
[2019-05-06] MEDS: hydroCHLOROthiazide 12.5 MG CAPSULE PO SCH (09:00)
[2019-05-06] MEDS: lisinopriL 20 MG TAB PO SCH ×2 (09:00→20:56)
[2019-05-06] MEDS: MULTIVITAMINS/MINERALS THERAP 1 TAB PO SCH (10:26)
[2019-05-06] MEDS: FOLIC ACID 1 MG TAB PO SCH (10:26)
--- NOTE | 2019-05-06 10:37 | IPNPDOC ---
Text Note Date of Service The patient was seen on 05/06/19. NOTE S: She was examined this morning in the ICU. She was alert, although somewhat confused. She has been somewhat tachycardic and hypotensive at times. Since the initiation of her Precedex drip. There has been no behavioral disturbance. O: General: Alert, somewhat confused, answers questions appropriately HEENT: PERRL, NC/AT, EOMI Lungs: CTA B/L Heart: +S1S2, RRR, no murmur Abd: soft, tender, + BS in 4 q's Ext: no edema, NUERO: No tremor, no asterixis, able to follow commands, PYSCH: Appropriate mood, appropriate affect. A/P: 34 yo W with alcohol use disorder and prior history of likely alcohol induced pancreatitis recently who presented to the ED with complaints of 10/10 aching epigastric abdominal and back pain with associated nausea and an episode of non- bloody emesis in the setting of recent persistent excessive alcohol intake and is admitted for acute pancreatitis. #Alcohol withdrawal -Transfer to the ICU overnight due to hypertension, hallucinations and restlessness. -She was started on Precedex.Will likely D/C later today - Continue to monitor for additional agitation. -[facility] Protocol #Acute pancreatitis 2/2 alcohol misuse -Has minimal abdominal pain today - NPO/IVF, analgesic therapy - Likely alcohol #HTN - continue to follow clinically - continue with home meds - lisinopril #Anion gap metabolic acidosis with initial lactic acidosis - resolved s/p IVF #Thrombocytopenia - chronic -2/2 alcohol use disorder and myelosuppressive effects of alcohol #hyponatremia - continue with IVF - NS #Hepatic steatosis and transaminitis -essentially resolved - repeat tomorrow am #DVT prophylaxis with SCDs. #Dispo - NPO/IVF, pain control VS,Fishbone, I+O VS, Fishbone, I+O Laboratory Tests 05/06/19 04:47 Vital Signs Date Time Temp Pulse Resp B/P (MAP) Pulse Ox O2 Delivery O2 Flow Rate FiO2 05/06/19 06:45 107 12 97/54 (68) 100 Room Air 05/06/19 04:55 97.4 I&O- Last 24 Hours up to 6 AM 05/06/19 06:00 Intake Total 2100 ml Output Total 1650 ml Balance 450 ml JORGEJOSEPH TRAMMELL DO May 06, 2019 07:22
[2019-05-06] MEDS: PERCOCET 5MG/325MG TAB PO PRN (21:00)
[2019-05-07] VITALS (12 sets, daily range): BP systolic 110–168; BP diastolic 65–117
[2019-05-07] MEDS: OXAZEPAM 15 MG CAP PO SCH ×4 (00:24→18:58)
[2019-05-07] MEDS: PERCOCET 5MG/325MG TAB PO PRN ×2 (01:59→20:44)
[2019-05-07] MEDS: KCL 40MEQ in NS 1000ML 1,000 ML IV SCH ×3 (02:00→22:42)
[2019-05-07] MEDS: hydrALAZINE INJ 20 MG/ML VIAL IV SCH ×2 (02:00→13:04)
[2019-05-07] MEDS: MORPHINE 2 MG/ML 1ML VIAL (J2270) IV PRN ×2 (03:32→10:01)
[2019-05-07 04:54] LABS: HEMATOCRIT 31.2 % (36.0-47.0); HEMOGLOBIN 10.6 g/dl (12.0-15.5); MEAN CORPUSCULAR HEMOGLOBIN 32.3 pg (27.0-33.0); MEAN CORPUSCULAR VOLUME 95.1 fl (80.0-96.0); PLATELET COUNT, AUTOMATED 197 10^3/uL (150-450); RED BLOOD COUNT 3.28 10^6/uL (4.00-5.40); WHITE BLOOD COUNT 6.1 10^3/uL (4.0-10.0)
[2019-05-07 05:30] LABS: BLOOD UREA NITROGEN 2 MG/DL (7-18); CALCIUM LEVEL 7.7 MG/DL (8.5-10.1); CARBON DIOXIDE LEVEL 26 MEQ/L (21-32); CHLORIDE LEVEL 108 MEQ/L (98-107); CREATININE FOR GFR 0.42 MG/DL (0.55-1.30); GLOMERULAR FILTRATION RATE > 60.0 (>60); GLUCOSE, FASTING 121 MG/DL (70-100); MAGNESIUM LEVEL 2.1 MG/DL (1.8-2.4); POTASSIUM SERUM 4.2 MEQ/L (3.5-5.1); SODIUM LEVEL 137 MEQ/L (136-145)
[2019-05-07] MEDS: SLF 3 ML SYR IV SCH ×3 (06:00→23:54)
[2019-05-07] MEDS: lisinopriL 20 MG TAB PO SCH ×2 (09:42→20:43)
[2019-05-07] MEDS: hydroCHLOROthiazide 12.5 MG CAPSULE PO SCH (09:42)
[2019-05-07] MEDS: MULTIVITAMINS/MINERALS THERAP 1 TAB PO SCH (09:43)
[2019-05-07] MEDS: FOLIC ACID 1 MG TAB PO SCH (09:43)
--- NOTE | 2019-05-07 10:11 | IPNPDOC ---
Text Note Date of Service The patient was seen on 05/07/19. NOTE S: Patient was examined it the ICU. She had not overnight activities. She was able to tolerate her liquid diet today. Will transfer patient out of ICU to [facility] today and continue monitoring for pain control. O: General: Alert, orientated, and to questions appropriately Lungs: CTA B/L Heart: +S1S2, RRR, no murmur Abd: Bowel sounds present in all 4 quadrants, nontender, nonobese Ext: no edema, NUERO: No tremor, no asterixis, able to follow commands, A/P: 34 yo female with alcohol use disorder and prior history of likely alcohol induced pancreatitis recently who presented to the ED with complaints of 10/10 aching epigastric abdominal and back pain with associated nausea and an episode of non-bloody emesis in the setting of recent persistent excessive alcohol intak e and is admitted for acute pancreatitis. #Alcohol withdrawal -Transfer to the ICU overnight due to hypertension,hallucinations and restlessness. -She was started on Precedex.Will likely D/C -Continue to monitor for additional agitation. -[facility] Protocol -IV lorazepam -Surex 30 mL every 6 -Acute withdrawal phase over. Will transfer patient admits her stay #Acute pancreatitis 2/2 alcohol misuse -Clear liquid diet -Pain control #HTN - lisinopril -Hydralazine -Hydrochlorothiazide #Thrombocytopenia -2/2 alcohol use disorder and myelosuppressive effects of alcohol -Improving #DVT prophylaxis with SCDs. #Dispo - NPO/IVF, pain control VS,Fishbone, I+O VS, Fishbone, I+O Laboratory Tests 05/07/19 04:43 Vital Signs Date Time Temp Pulse Resp B/P (MAP) Pulse Ox O2 Delivery O2 Flow Rate FiO2 05/07/19 06:00 92 121/75 (90) 100 Room Air 05/07/19 04:00 98.9 14 I&O- Last 24 Hours up to 6 AM 05/07/19 06:00 Intake Total 4371.7 ml Output Total 3430 ml Balance 941.7 ml JOSEPH SHEN DO May 07, 2019 07:44
[2019-05-07] MEDS: traZODone 100 MG TAB PO PRN (20:43)
[2019-05-08] MEDS: OXAZEPAM 15 MG CAP PO SCH ×2 (01:14→06:40)
[2019-05-08 02:00] VITALS: BP 125/80
[2019-05-08] MEDS: PERCOCET 5MG/325MG TAB PO PRN (02:43)
[2019-05-08 06:00] VITALS: BP 122/73
[2019-05-08 06:24] LABS: HEMATOCRIT 29.4 % (36.0-47.0); HEMOGLOBIN 9.7 g/dl (12.0-15.5); MEAN CORPUSCULAR HEMOGLOBIN 31.7 pg (27.0-33.0); MEAN CORPUSCULAR VOLUME 96.1 fl (80.0-96.0); PLATELET COUNT, AUTOMATED 273 10^3/uL (150-450); RED BLOOD COUNT 3.06 10^6/uL (4.00-5.40); WHITE BLOOD COUNT 6.3 10^3/uL (4.0-10.0)
[2019-05-08] MEDS: SLF 3 ML SYR IV SCH ×2 (06:40→13:36)
[2019-05-08 06:49] LABS: BLOOD UREA NITROGEN 6 MG/DL (7-18); CALCIUM LEVEL 8.2 MG/DL (8.5-10.1); CARBON DIOXIDE LEVEL 26 MEQ/L (21-32); CHLORIDE LEVEL 106 MEQ/L (98-107); CREATININE FOR GFR 0.61 MG/DL (0.55-1.30); GLOMERULAR FILTRATION RATE > 60.0 (>60); GLUCOSE, FASTING 143 MG/DL (70-100); MAGNESIUM LEVEL 1.9 MG/DL (1.8-2.4); POTASSIUM SERUM 4.3 MEQ/L (3.5-5.1); SODIUM LEVEL 137 MEQ/L (136-145)
[2019-05-08 08:42] VITALS: BP 122/73
[2019-05-08] MEDS: FOLIC ACID 1 MG TAB PO SCH (08:42)
[2019-05-08] MEDS: lisinopriL 20 MG TAB PO SCH (08:42)
[2019-05-08] MEDS: MULTIVITAMINS/MINERALS THERAP 1 TAB PO SCH (08:42)
[2019-05-08] MEDS: KCL 40MEQ in NS 1000ML 1,000 ML IV SCH (08:42)
[2019-05-08] MEDS ORDERED: hydroCHLOROthiazide 25 MG TAB PO SCH (09:00)
--- NOTE | 2019-05-08 13:06 | IPNPDOC ---
Text Note Date of Service The patient was seen on 05/08/19. NOTE S: Overnight patient was stable.No acute activities. Has been tolerating by m outh diet without difficulty. This morning her IV fluids was discontinued. Her pain medication was also discontinued. We'll continue to advance her diet slowly as tolerated with attention to discharge tomorrow. She will be discharged with Serax taper PE VITALS: See Below GENERAL APPEARANCE: Alert no acute distress. LUNGS: Clear to auscultation bilaterally. HEART: Normal S1, S2. No murmurs, no rubs, no gallops ABDOMEN: Soft. No masses. Bowel sounds are present., No tenderness, no organomegaly EXTREMITIES: Moves all extremities equally. No gross deformities. A/P: 34 yo female with alcohol use disorder and prior history of likely alcohol induced pancreatitis recently who presented to the ED with complaints of 10/10 aching epigastric abdominal and back pain with associated nausea and an episode of non-bloody emesis in the setting of recent persistent excessive alcohol intake and is admitted for acute pancreatitis. #Acute encephalopathy due to Alcohol withdrawal -Status post acute withdrawal phase. No episodes of increased hypertension, no hallucination, no episodes. Restasis. Status post Precedex drip. -CIWA Protocol, has been normal -IV lorazepam as needed -Decreased to Serax 20 mg 3 times a day. Will likely discharge patient on Serax taper #Acute pancreatitis 2/2 alcohol misuse -Tolerating by mouth diet. We'll advance diet slowly. #HTN -Blood pressures has been stable. -Will discontinue hydrochlorothiazide due to its increase risk of pancreatitis. And increase patient's lisinopril to 40 twice a day. #Thrombocytopenia -2/2 alcohol use disorder and myelosuppressive effects of alcohol -Improving #DVT prophylaxis with SCDs. #Dispo -Likely discharge tomorrow. VS,Fishbone, I+O VS, Fishbone, I+O Laboratory Tests 05/08/19 05:28 Vital Signs Date Time Temp Pulse Resp B/P (MAP) Pulse Ox O2 Delivery O2 Flow Rate FiO2 05/08/19 08:42 122/73 05/08/19 06:00 97.5 92 17 99 Room Air I&O- Last 24 Hours up to 6 AM 05/08/19 05:59 Intake Total 3750 ml Output Total 1150 ml Balance 2600 ml Attending Note I personally saw and evaluated the patient. I agree with the findings and the plan of care documented above in the resident's note. No signs of alcohol withdrawal, tolerating diet, will taper down serax. If continues to not have any recurrence of withdrawal signs probable discharge tomorrow. JOSEPH SHEN DO May 08, 2019 13:06 RITA ODONNELL MD May 09, 2019 21:14
[2019-05-08 13:19] LABS: PHOSPHORUS LEVEL 2.1 MG/DL (2.5-4.9)
[2019-05-08 13:30] VITALS: BP 138/85
[2019-05-08 14:00] VITALS: BP 138/85
[2019-05-08] MEDS: OXAZEPAM 10 MG CAP PO SCH ×2 (16:22→20:20)
[2019-05-08] MEDS: lisinopriL 40 MG TAB PO SCH (20:19)
[2019-05-08] MEDS: traZODone 100 MG TAB PO PRN (20:20)
[2019-05-08] MEDS ORDERED: OXAZEPAM 10 MG CAP PO SCH (21:00)
[2019-05-08 22:00] VITALS: BP 140/90
[2019-05-09] MEDS: SLF 3 ML SYR IV SCH ×2 (00:28→06:02)
[2019-05-09 06:00] VITALS: BP 132/80
[2019-05-09 06:15] LABS: HEMATOCRIT 33.2 % (36.0-47.0); HEMOGLOBIN 10.8 g/dl (12.0-15.5); MEAN CORPUSCULAR HGB CONC 32.5 g/dl (32.0-36.5); MEAN CORPUSCULAR VOLUME 95.4 fl (80.0-96.0); PLATELET COUNT, AUTOMATED 401 10^3/uL (150-450); RED BLOOD COUNT 3.48 10^6/uL (4.00-5.40); WHITE BLOOD COUNT 9.2 10^3/uL (4.0-10.0)
[2019-05-09 06:40] LABS: BLOOD UREA NITROGEN 8 MG/DL (7-18); CALCIUM LEVEL 9.6 MG/DL (8.5-10.1); CARBON DIOXIDE LEVEL 30 MEQ/L (21-32); CHLORIDE LEVEL 97 MEQ/L (98-107); CREATININE FOR GFR 0.64 MG/DL (0.55-1.30); GLOMERULAR FILTRATION RATE > 60.0 (>60); GLUCOSE, FASTING 148 MG/DL (70-100); MAGNESIUM LEVEL 1.9 MG/DL (1.8-2.4); SODIUM LEVEL 133 MEQ/L (136-145)
[2019-05-09] MEDS: lisinopriL 40 MG TAB PO SCH (08:24)
[2019-05-09] MEDS: OXAZEPAM 10 MG CAP PO SCH (08:24)
[2019-05-09] MEDS: MULTIVITAMINS/MINERALS THERAP 1 TAB PO SCH (08:24)
[2019-05-09] MEDS: FOLIC ACID 1 MG TAB PO SCH (08:24)
[2019-05-09] MEDS ORDERED: K-PHOS ORIGINAL (POT.ACID PHOSPHATE) 500MG TAB PO SCH (09:00)
[2019-05-09] MEDS ORDERED: POTASSIUM PHOSPHATE INJ 20 MMOL in D5W 250 ML IV ONE (10:00)
[2019-05-09] MEDS ORDERED: OXAZ10CA3 PO (10:44)
[2019-05-09] MEDS ORDERED: LISI40TA PO (10:44)
[2019-05-09 11:08] LABS: HEMOGLOBIN A1c 4.9 %
--- NOTE | 2019-05-09 14:13 | DS.PDOC ---
Discharge Summary General Date of Admission May 01, 2019 at 22:45 Date of Discharge 05/09/19 Primary Care Physician: Anuradha Attending Physician: RITA ODONNELL MD Discharge Summary PROCEDURES PERFORMED DURING STAY: Precedex drip. ADMITTING DIAGNOSES: 1. Pancreatitis DISCHARGE DIAGNOSES: 1. Alcoholic Pancreatitis 2. Acute encephalopathy due to Alcohol withdrawal 3. High Anion Gap metabolic acidosis with initial lactic acidosis and renal failure 4. Thrombocytopenia resolved 5. Hyponatremia 6. Hypertension 7. GAGE 8. Hyperkalemia and Hypokalemia COMPLICATIONS/CHIEF COMPLAINT: Acute Pancreatitis. HISTORY OF PRESENT ILLNESS: This a 34 yo female with past medical history of pancreatitis secondary to alcohol use. Whom presented with 10 out of 10 epigastric pain that was accompanied by nausea and one episodes of nonbilious vomiting. On presentation patient denied any recent alcohol use. Initial evaluation with CT A/P showed peripancreatic edema and was admitted to medicine for acute pancreatitis. She was admitted for pancreatitis, with plan for pain control, and restarting of by mouth intake as tolerated. HOSPITAL COURSE: During patient's hospital stay. She was made nothing by mouth initially with IV fluid hydration, her diet was restarted on clear liquid diet and advance as tolerated. Patient was initially doing well, however regressed due to significant abdominal pain. Patient's care was complicated by acute alcohol withdrawal, which required transfer to the ICU. When patient developed tachycardia, hypertensive, and auditory hallucination. She was started on Precedex drip, until the acute withdrawal face was over. Following which patient was transferred out of ICU and her diet restarted. Prior to discharge she was tolerating mouth diet without abdominal pain. She was discharged in stable condition with taper of Serax. She was counseled heavily against alcohol consumption. Patient verbalized understanding, however, did not want alcohol rehabilitation. DISCHARGE MEDICATIONS: Please see below. ALLERGIES: Please see below. PHYSICAL EXAMINATION ON DISCHARGE: VITAL SIGNS: Please see below. VITALS: See Below GENERAL APPEARANCE: Alert no acute distress. SKIN: Warm, well perfused. LUNGS: Clear to auscultation bilaterally. HEART: Normal S1, S2. No murmurs, no rubs, no gallops ABDOMEN: Soft. No masses. Bowel sounds are present. TRUNK/SPINE:Straight. EXTREMITIES: Moves all extremities equally. No gross deformities. PULSES: 2+ upper and lower extremity . LABORATORY DATA: Please see below. IMAGING: IMPRESSION: 1. Limited noncontrast examination. 2. Questionable subtle peripancreatic edema. Correlate with serum amylase and lipase levels to exclude acute pancreatitis. 3. Mild wall thickening of the proximal small bowel loops in the left upper quadrant/mid abdomen, similar to prior. Mild nonspecific enteritis could produce this appearance. PROGNOSIS:Stable ACTIVITY: As tolerated DIET: As tolerated DISCHARGE PLAN: To home DISPOSITION: 01 Home, Self-Care. DISCHARGE INSTRUCTIONS: 1. Please follow up with PCP 2. Alcohol cessation DISCHARGE CONDITION: Stable TIME SPENT ON DISCHARGE: 35 minutes. Vital Signs/I&Os Vital Signs Date Time Temp Pulse Resp B/P (MAP) Pulse Ox O2 Delivery O2 Flow Rate FiO2 05/09/19 06:00 98.3 98 17 132/80 (97) 100 Room Air I&O- Last 24 Hours up to 6 AM 05/09/19 06:00 Intake Total 1100 ml Output Total 0 ml Balance 1100 ml Laboratory Data Labs 24H Laboratory Tests 2 05/09/19 05:35: Estimated Mean Plasma Glucose 94, Hemoglobin A1c 4.9 05/09/19 05:37: Nucleated Red Blood Cells % (auto) 0.0, Anion Gap 6L, Glomerular Filtration Rate > 60.0, Calcium Level 9.6#, Magnesium Level 1.9 CBC/BMP Laboratory Tests 05/09/19 05:37 Discharge Medications Scheduled Lisinopril/Hydrochlorothiazide (Lisinopril-Hctz 20-12.5 mg Tab) 1 Each Tablet, 1 TAB PO DAILY Oxazepam (Oxazepam) 10 Mg Capsule, 10 MG PO TID Take 1 tablet 3 times a day, followed by 1 tablet twice a day on the next, Then on the last day take the last tablet Scheduled PRN Acetaminophen (Acetaminophen) 500 Mg Tablet, 500 MG PO Q4H PRN for PAIN / FEVER, (Reported) Trazodone HCl (Trazodone HCl) 100 Mg Tablet, 100 MG PO QHS PRN for SLEEP, (Reported) Allergies Coded Allergies: Penicillins (Verified Allergy, Unknown, SHOCK, 02/01/19) vancomycin (Verified Allergy, Unknown, RASH, 08/06/18) Attending Note I personally saw and evaluated the patient. I agree with the findings and the plan of care documented above in the resident's note. I personally spent 35 minutes in counselling and coordinating the patient's discharge. JOSEPH SHEN DO May 09, 2019 14:13 RITA ODONNELL MD May 10, 2019 12:21
[2019-05-09] MEDS ORDERED: LISI20TA19 PO (17:02)
== END 2019-05-09 12:59 | disposition home or self-care (01) | DRG 439 ==
LOC: M ED 20:05 → M ED INP 22:45 → ENRESERVTM 23:39 → ENRESERVDT 23:39 → M PCU 05-02 00:50 → M ICU 05-06 04:33 → M MSPAV 05-07 14:36
PROVIDERS: ADMIT Internal Medicine; ATTEND Internal Medicine Nephrology
DX: K85.20 Alcohol induced acute pancreatitis without necrosis or infection (principal); E87.2 Acidosis; N17.9 Acute kidney failure, unspecified; E87.1 Hypo-osmolality and hyponatremia; F10.239 Alcohol dependence with withdrawal, unspecified; I10 Essential (primary) hypertension; R00.0 Tachycardia, unspecified; E86.0 Dehydration; D72.829 Elevated white blood cell count, unspecified; D69.6 Thrombocytopenia, unspecified; Z79.899 Other long term (current) drug therapy; Z88.0 Allergy status to penicillin; Z88.1 Allergy status to other antibiotic agents; Z87.891 Personal history of nicotine dependence; Z63.5 Disruption of family by separation and divorce; K76.0 Fatty (change of) liver, not elsewhere classified; R74.0 Nonspecific elevation of levels of transaminase and lactic acid dehydrogenase [LDH]; E78.5 Hyperlipidemia, unspecified; G31.2 Degeneration of nervous system due to alcohol

== ENCOUNTER 2019-07-25 01:32 | Emergency (ER) | payer OTHER, SELFPAY ==
[~2019-07-25] VITALS: Ht 170.2 cm; Wt 56.8 kg
[2019-07-25 01:32] VITALS: BP 140/77
[~2019-07-25 01:32] MED LIST changes: +LISI40TA PO; +OXAZ10CA3 PO
[2019-07-25] MEDS ORDERED: LISI40TA PO (01:39)
[2019-07-25] MEDS ORDERED: LIDOCAINE W/EPINEPHRINE 1% 20ML VIAL SC ONE (02:00)
== END 2019-07-25 03:09 | disposition home or self-care (01) ==
LOC: M ED 01:32
DX: S01.81XA Laceration without foreign body of other part of head, initial encounter (principal); W01.0XXA Fall on same level from slipping, tripping and stumbling without subsequent striking against object, initial encounter; Y92.099 Unspecified place in other non-institutional residence as the place of occurrence of the external cause; Y93.89 Activity, other specified; Y99.9 Unspecified external cause status; F17.200 Nicotine dependence, unspecified, uncomplicated; Z79.899 Other long term (current) drug therapy; Z88.0 Allergy status to penicillin; Z88.1 Allergy status to other antibiotic agents

== ENCOUNTER 2019-08-14 09:54 | Emergency (ER) | payer OTHER, SELFPAY ==
[~2019-08-14] VITALS: Ht 170.2 cm; Wt 54.5 kg
[2019-08-14 10:46] VITALS: BP 150/93
== END 2019-08-14 12:36 | disposition home or self-care (01) ==
LOC: EDBD 09:54 → M ED 09:54
DX: F10.129 Alcohol abuse with intoxication, unspecified (principal); I10 Essential (primary) hypertension; Z88.0 Allergy status to penicillin; Z79.899 Other long term (current) drug therapy
CPT/HCPCS: 36415; 99284; G0480